=== PATIENT | male | born 1950 | race Caucasian/White ===

== ENCOUNTER 2018-02-23 14:39 | Inpatient (IN) | payer MEDICARE ==
[~2018-02-23] VITALS: Ht 190.5 cm; Wt 58.5 kg
--- NOTE | 2018-02-23 14:42 | NUR ---
PT TO ER BED 14 C/O WORSENING NAUSEA, GENERALIZED WEAKNESS FOR A COUPLE OF WEEKS NOW. WAS AT URGENT CARE YESTERDAY FOR SAME REASON. PT GOWNED AND PLACED ON MONITOR. AWAITING MD MCGILL.
--- NOTE | 2018-02-23 15:03 | NUR ---
DR LAST AT BEDSIDE FOR EVAL.
[2018-02-23] MEDS ORDERED: ONDANSETRON HCL/PF 4 MG/2 ML VIAL ONE (15:19)
[2018-02-23 15:27] LABS: BASOPHILS # (AUTO) 0.1 /CMM (0.0-0.2); BASOPHILS % (AUTO) 0.4 % (0.0-2.0); HEMATOCRIT 42 % (39-51); HEMOGLOBIN 13.3 g/dL (13.5-17.5); LYMPHOCYTES # (AUTO) 0.5 /CMM (0.8-4.8); LYMPHOCYTES % (AUTO) 1.6 % (20.0-44.0); MEAN CORPUSCULAR HEMOGLOBIN 26 PG (26.0-33.0); MEAN CORPUSCULAR HGB CONC 32 g/dl (31.0-36.0); MEAN CORPUSCULAR VOLUME 83 fL (80-96); MONOCYTES # (AUTO) 1.3 /CMM (0.1-1.30); MONOCYTES % (AUTO) 4.2 % (2.0-12.0); NEUTROPHILS # (AUTO) 29.2 /CMM (1.8-8.9); NEUTROPHILS % (AUTO) 93.8 % (43.0-81.0); PLATELET COUNT (AUTO) 550 /CMM (150-450); RDW COEFFICIENT OF VARIATION 14.8 (11.5-15.0)
--- NOTE | 2018-02-23 15:28 | NUR ---
PT STATES NAUSEATED. ERMD AWARE. ZOFRAN IVP GIVEN PER ERMD VERBAL ORDER.
[2018-02-23 15:30] LABS: WHITE BLOOD COUNT (AUTO) 31.2 K/uL (4.3-11.0)
[2018-02-23] MEDS ORDERED: IV NS 0.9% 1,000 ML BAG IV ONE ×2 (15:30→18:30)
[2018-02-23 15:34] LABS: CALCIUM, SERUM 9.2 mg/dL (8.5-10.1); CREATININE 1.3 mg/dL (0.6-1.3); POTASSIUM 4.2 mmol/L (3.5-5.1)
[2018-02-23 15:40] LABS: ALBUMIN 2.3 g/dL (3.4-5.0); BILIRUBIN,DIRECT 0.1 mg/dL (0.0-0.2); BILIRUBIN,TOTAL 0.3 mg/dL (0.2-1.0); TOTAL PROTEIN, SERUM 8.2 g/dL (6.4-8.2)
--- NOTE | 2018-02-23 15:43 | NUR ---
RADIOLOGY AT BEDSIDE FOR ABDOMINAL XRAY.
[2018-02-23 16:04] LABS: BAND % (MANUAL) 3 % (0.0-5.0); LYMPHOCYTES % (MANUAL) 2 % (16-48); MONOCYTES % (MANUAL) 2 % (0-11.0); NEUTROPHILS % (MANUAL) 93 (42-76)
[2018-02-23 17:11] LABS: APPEARANCE,URINE Cloudy (CLEAR); BILIRUBIN,URINE Negative (NEGATIVE); BLOOD, URINE Large Ery/uL (NEGATIVE); COLOR,URINE Amber (YELLOW); KETONES,URINE Trace (NEGATIVE); LEUKOCYTE ESTERASE ,URINE Large (NEGATIVE); NITRITE, URINE Negative (NEGATIVE); PH,URINE 6.5 (5.0-8.0); PROTEIN,URINE 100 mg/dl (NEGATIVE); UGLUCOSE Negative (NEGATIVE); UROBILINOGEN,URINE 0.2 EU/dL (0.2)
[2018-02-23 17:25] LABS: BACTERIA,URINE Few /HPF (None Seen); RBC,URINE TOO NUMEROUS TO COUN /HPF (0-2); SQUAMOUS EPITHELIAL CELL,UR Few /HPF (None Seen); WBC,URINE TOO NUMEROUS TO COUN /HPF (0-3)
[2018-02-23] MEDS ORDERED: TAMS-12 PO (18:25)
[2018-02-23] MEDS ORDERED: TEMA30CA PO (18:25)
[2018-02-23] MEDS ORDERED: COFF400C PO (18:26)
[2018-02-23] MEDS ORDERED: CEFTRIAXONE 1 G in IV D5W 50 ML IV ONE (18:30)
[2018-02-23] MEDS ORDERED: CEFTRIAXONE 1GM BAG (ER ONLY) 50 ML IV ONE (18:30)
--- NOTE | 2018-02-23 18:44 | NUR ---
REPORT GIVEN TO CRYSTAL EASTON. PT AWAITING TRASFER TO FLOOR.
--- NOTE | 2018-02-23 19:27 | NUR ---
ADMISSION NOTES: RECEIVED REPORT FROM JONATHON EASTON. PT WAS BROUGHT TO THE UNIT VIA [employer]AD[employer] CC OF DECREASED/POOR APPETITE AND WORSENING NAUSEA FOR COUPLE OF WEEKS. PT IS A/O X3, ON RA RESPIRATION EVEN AND UNLABORED. NOTED EPISODE OF COUGHING, PER PT IT HAS PHLEGM SOMETIMES BUT HE'S UNABLE TO CLEAR OUT OR COUGH OUT HIS SECRETIONS THAT'S WHY HE DOESN'T KNOW WHAT IS THE COLOR OF HIS PHLEGM. PT HAS RIGHT AC G 20 PATENT AND FLUSHING WELL, NO S./S OF INFILTRATION OR REDNESS NOTED. PT USES MOTORIZED SCOOTER, STATED HE'S UNABLE TO AMBULATE ON HIS FEET, EVEN LIFT HIS LEGS BUT HAS SENSATION ON LEGS. ORIENTED PT TO UNIT POLICY AND HOURLY ROUNDING, USE OF CALL LIGHT SYSTEM. SKIN ASSESSMENT PERFORMED AND TOOK PHOTOS OF SKIN ISSUES, PRINTED AND ATTACHED TO PT'S CHART. PT BROUGHT OWN MEDICATION FROM HOME, AND INFORMED PT ABOUT POLICY OF HOSPITAL ABOUT KEEPING HOME MEDS, PT AGREE TO SEND HIS MEDICATION TO THE PHARMACY. BLE OFFLOADED. SPORTS PSYCHOLOGIST QUALITY CONTROL ASSOCIATE CAME TO SEE THE PT AT 1930, PERFORMED H&P, DISCUSSED PLAN OF CARE TO THE PT, MADE AWARE OF PT'S HEART RATE. PER QUALITY CONTROL ASSOCIATE WILL INPUT ALL ADMITTING ORDERS. VS TAKEN AND RECORDED. SAFETY PRECAUTIONS FOR FALL INITIATED, CALL LIGHT IN REACH. WILL CONTINUE MONITORING PT.
[2018-02-23 19:30] VITALS: BP 122/67
[2018-02-23] MEDS ORDERED: ACETAMINOPHEN 325 MG TABLET PO PRN (19:30)
[2018-02-23] MEDS ORDERED: ZOLPIDEM TARTRATE 5 MG TABLET PO PRN (19:30)
[2018-02-23] MEDS ORDERED: MAGNESIUM HYDROXIDE 30 ML UDC PO PRN (19:30)
[2018-02-23] MEDS ORDERED: ONDANSETRON HCL/PF 4 MG/2 ML VIAL IVP PRN (19:30)
[2018-02-23] MEDS ORDERED: FEE PK DOSING 1 MIN EA MC ONE (19:49)
[2018-02-23 20:00] VITALS: BP 122/67
[2018-02-23] MEDS ORDERED: IPRATROPIUM NEB FS 0.5 MG/2.5 ML AMPUL.NEB NEB PRN (20:00)
[2018-02-23] MEDS ORDERED: VANCOMYCIN 1 GM VIAL ONE (20:38)
[2018-02-23] MEDS: IV NS 0.9% 1,000 ML IV PRN (20:46)
[2018-02-23] MEDS: VANCOMYCIN 1 GM in IV D5W 250 ML IV SCH (20:46)
--- NOTE | 2018-02-23 20:48 | NUR ---
rn notes regarding vancomycin: vancomycin 1gm new order from md, override the medication, contacted pharmacy, spoke with ty, informed that rn overlooked the medication, didnt know medication was delivered, already override the vancomycin 1gm and mixed it, informed ty/pharmacist.
[2018-02-23] MEDS: ENOXAPARIN SODIUM 40 MG/0.4 ML DISP.SYRIN SQ SCH (20:58)
[2018-02-23] MEDS: PIPERACILLIN /TAZOBACTAM 3.375 G in IV D5W 50 ML IV SCH (22:01)
[2018-02-24] MEDS: Z GUARD REMEDY 2 OZ OINT TP PRN (01:30)
[2018-02-24] MEDS: HYDROCODONE/APAP 5/325MG 1 EACH TABLET PO PRN (02:23)
[2018-02-24] MEDS: PIPERACILLIN /TAZOBACTAM 3.375 G in IV D5W 50 ML IV SCH ×4 (05:04→23:04)
--- NOTE | 2018-02-24 06:44 | NUR ---
RN CLOSING NOTES: PT IN BED, AWAKE, REMAINS ON RA, DENIES ANY SOB, IV ACCESS REMAINS PATENT AND FLUSHING WELL, FREE FROM REDNESS, NO INFILTRATION NOTED ON IV SITE. BLE OFFLOADED. RIGHT ELBOW OFFLOADED. VS REMAINS STABLE, NEEDS ATTENDED. FOR WOUND CARE CONSULT, DIETARY CONSULT, CM AND TAG STRINGER CONSULT. AWAITING DELIVERY OF [facility] MATTRESS. AWAITING MEDS TO BE RECONCILE. SAFETY PRECAUTIONS FOR FALL REMAINS ENGAGED, CALL LIGHT IN REACH, WILL ENDORSE TO DAY RN FOR CONTINUITY OF CARE.
[2018-02-24 07:21] LABS: HEMATOCRIT 34 % (39-51); HEMOGLOBIN 10.9 g/dL (13.5-17.5); LYMPHOCYTES # (AUTO) 0.4 /CMM (0.8-4.8); LYMPHOCYTES % (AUTO) 1.5 % (20.0-44.0); MEAN CORPUSCULAR HEMOGLOBIN 27 PG (26.0-33.0); MEAN CORPUSCULAR HGB CONC 32 g/dl (31.0-36.0); MEAN CORPUSCULAR VOLUME 84 fL (80-96); MONOCYTES # (AUTO) 1.5 /CMM (0.1-1.30); MONOCYTES % (AUTO) 5.4 % (2.0-12.0); NEUTROPHILS # (AUTO) 26.1 /CMM (1.8-8.9); NEUTROPHILS % (AUTO) 93.1 % (43.0-81.0); PLATELET COUNT (AUTO) 464 /CMM (150-450); RDW COEFFICIENT OF VARIATION 14.9 (11.5-15.0); RED BLOOD CELL COUNT(AUTO) 4.08 MIL/uL (4.5-6.0); WHITE BLOOD COUNT (AUTO) 28.1 K/uL (4.3-11.0)
--- NOTE | 2018-02-24 07:36 | NUR ---
RN OPENING NOTES RECEIVED PATIENT RESTING IN BED, A/OX3. NO ACUTE DISTRESS, NO SOB, DENIED PAIN OR DISCOMFORT AT THIS TIME. IV SITE INTACT AND PATENT. KEPT PATIENT SAFE AND COMFORTABLE. BED IN LOW/LOCKED POSITION, SIDERAILS UPX2, CALL LIGHT IN REACH. WILL CONTINUE TO MONITOR ACCORDINGLY
[2018-02-24 07:44] LABS: MAGNESIUM 1.8 mg/dL (1.8-2.4); PHOSPHORUS 2.9 mg/dL (2.5-4.9); POTASSIUM 3.2 mmol/L (3.5-5.1)
[2018-02-24 08:00] VITALS: BP 96/57
[2018-02-24] MEDS: VANCOMYCIN 1 GM in IV D5W 250 ML IV SCH (09:00)
[2018-02-24] MEDS ORDERED: POTASSIUM CHLORIDE 20 MEQ TAB.PRT.SR PO SCH (11:30)
[2018-02-24] MEDS: POTASSIUM CHLORIDE 20 MEQ TAB.PRT.SR PO SCH ×2 (11:48→12:37)
[2018-02-24] MEDS ORDERED: TEMAZEPAM 15 MG CAPSULE PO PRN (13:30)
[2018-02-24] MEDS ORDERED: ASPIRIN 325 MG TABLET PO PRN (14:00)
[2018-02-24 16:00] VITALS: BP 97/52
[2018-02-24] MEDS: LACTOBACILLUS RHAMNOSUS GG 1 EACH CAP.SPRINK PO SCH (16:42)
[2018-02-24] MEDS: IV NS 0.9% 1,000 ML IV PRN (17:18)
--- NOTE | 2018-02-24 18:00 | NUR ---
RN NOTES TURNED AND REPOSITIONED PATIENT EVERY 2 HRS NEEDED.
--- NOTE | 2018-02-24 18:43 | NUR ---
RN NOTES PATIENT ASKING FOR ASPIRIN ORDER FOR HEADACHE. JASON VÁZQUEZ ORDERED ASPIRIN 325MG PO Q6 PRN FOR HEADACHE. PATIENT ASKING FOR 2 325MG TOTAL OF 650MG. NOTIFIED JASON VÁZQUEZ NP. PER JASON VÁZQUEZ NP, OK TO ORDER ASPIRIN 650MG, READBACK AND VERIFIED.
--- NOTE | 2018-02-24 19:04 | NUR ---
Met with patient, he is alert, resides on the first floor apartment with a roommate. He does not ambulate, he has a power scooter that he utilized to mobilized. He is semi-independent with adl's. His primary source of support is his roommate who is disabled. Patient will take the bus on his scooter to go home when discharge. Addendum: 02/24/18 at 1906 by DANNIELLE STEPHENSON RN Amended: Links added.
--- NOTE | 2018-02-24 19:29 | NUR ---
PATIENT IN STABLE CONDITION. ALL NEEDS ATTENDED AND PROVIDED. ALL DUE MEDS GIVEN ORDERED. KEPT PATIENT SAFE AND COMFORTABLE. BED IN LOW/LOCKED POSITION, SIDERAILS UPX2, CALL LIGHT IN REACH. ENDORSED TO NIGHT RN FOR TERESA.
--- NOTE | 2018-02-24 19:30 | NUR ---
rn initial notes: PT IN BED, AWAKE, ON RA, DENIES ANY SOB, IV ACCESS REMAINS PATENT AND FLUSHING WELL, FREE FROM REDNESS, NO INFILTRATION NOTED ON IV SITE. BLE OFFLOADED. RIGHT ELBOW OFFLOADED. PT REQUESTING FOR TYLENOL FOR GENERALIZED PAIN, REFUSING NORCO. SAFETY PRECAUTIONS FOR FALL REMAINS ENGAGED, CALL LIGHT IN REACH, WILL ENDORSE TO DAY RN FOR CONTINUITY OF CARE.
--- NOTE | 2018-02-24 19:35 | NUR ---
RN NOTES: PT VOIDED IN THE DIAPER, DIAPER NOTED TO BE SOAKED WITH URINE, PERFORMED BLADDER SCAN POST VOID OBTAINED 0ML. NO ABDOMINAL DISTENTION NOTED, PT DENIES ANY PAIN UPON PALPATIN OF BLADDER/ABDOMINAL AREA.
--- NOTE | 2018-02-24 19:40 | NUR ---
prn tylenol: pt stated he has generalized pain, offered norco, but pt refused stated he preferred tylenol, prn tylenol 650 mg tab po administered at this time. will cotnineu to monitor and reassess pt
[2018-02-24 20:00] VITALS: BP 95/60
[2018-02-24] MEDS: TAMSULOSIN 0.4 MG CAP.SR.24H PO SCH (21:06)
[2018-02-24] MEDS: ENOXAPARIN SODIUM 40 MG/0.4 ML DISP.SYRIN SQ SCH (21:07)
--- NOTE | 2018-02-24 21:35 | NUR ---
BLADDER SCAN: PERFORMED BLADDER SCAN, OBTAINED RESULT OF 197 ML, HIGHEST AMOUNT OBTAINED, UNABLE TO PRINT RESULT IT APPEARS ITS OUT OF PAPER. NO ABDOMINAL DISTENTION NOTED, PT DENIES ANY PAIN UPON PALPATION OF ABDOMEN AND BLADDER AREA.
[2018-02-24] MEDS ORDERED: PIPERACILLIN /TAZOBACTAM 3.375 G in IV D5W 50 ML IV SCH (22:00)
[2018-02-24] MEDS: ASPIRIN 325 MG TABLET PO PRN (22:02)
--- NOTE | 2018-02-24 22:02 | NUR ---
PRN ASPIRIN: PT REQUESTED FOR HIS ASPIRIN FOR C/O GENERALIZED PAIN 12/12, HE REFUSED NORCO AND SPECIFICALLY WANTS ASPIRIN STATED HE'S BEEN USED TO THIS MEDICATION, HE NORMALLY TAKES IT FOR PAIN, WHEN HIS AT HOME. PRN ASPIRIN 650 MG TAB PO ADMINISTERED AT THIS TIME. WILL CONTINUE TO MONITOR AND REASSESS
--- NOTE | 2018-02-25 | NUR ---
RN NOTES: PT VOIDED IN THE DIAPER, POST VOID RESIDUAL OBTAINED IS 50ML, NO ABDOMINAL DISTENTION NOTED, WILL CONTINUE MONITORING PT
--- NOTE | 2018-02-25 04:15 | NUR ---
BLADDER SCAN: BLADDER SCAN PERFORMED AT THIS TIME, OBTAINED RESULT OF 150ML, UNABLE TO PRINT REPORT THERE'S NO PRINTER PAPER AVAILABLE IN THE BLADDER SCANNER MACHINE
[2018-02-25] MEDS: ASPIRIN 325 MG TABLET PO PRN ×2 (04:32→22:31)
--- NOTE | 2018-02-25 04:33 | NUR ---
PRN ASPIRIN 650MG: PT C/O GENERALIZED PAIN REQUESTING FOR ASPIRIN, PRN ASPIRIN 650 MG TAB PO ADMINISTERED TO THE PT AT THIS TIME. PT STATED HE WANTS THE ASPIRIN TO BE GIVEN SCHEDULED EVERY 6HRS, INFORMED PT THAT ASPIRIN ORDER IS EVERY 6HRS NEEDED FOR PAIN, TECHNICALLY ITS AN SCHEDULED, SO HE STILL NEEDS TO CALL IF HE WANTS THE MEDICATION. IF BY THE TIME HE CALLS AND MEDICINE NOT DUE YET, AT LEAST RN AWARE THAT HE WANTS THE MEDICATION. INFORMED PT ABOUT RISK FOR GI BLEEDING THERE'S NECESSARY PRECAUTION TO WHY ASPIRIN IS BEING GIVEN IN THE FREQUENCY ORDERED, HOWEVER PT CLAIMED HE'S BODY IS USED TO TAKING ASPIRIN 650MG TAB EVERY DAY Q3HRS FOR PAIN.
[2018-02-25] MEDS: PIPERACILLIN /TAZOBACTAM 3.375 G in IV D5W 50 ML IV SCH ×4 (05:03→23:05)
[2018-02-25] MEDS: IV NS 0.9% 1,000 ML IV PRN ×2 (05:03→21:49)
--- NOTE | 2018-02-25 05:30 | NUR ---
rn notes: surgery aid changed pt's diaper q2hrs and diaper is soaking wet, surgery aid did complete linen changed for those time she change pt's diaper. every after voiding, bladder scan was performed accordingly. z guard lathered on pt's sacral and perineum area, and mepilex applied also and to other bony prominence. pt help in repositioning, surgery aid and rn assisting pt in turning and repositioning every 2hrs. unfortunately, no available bed with belen mattress at this time, but standing order for kci was placed, will follow up with day rn in am. pt needs motivation and encouragement in repositioning, there are times pt will refused, but afterwards will changed his mind and will agree to be turn and reposition. pt able to turn/reposition on his own, but he doesnt want to be on his side and preferred to be laying on his back which is dangerous as he's too fragile and prone to developing and worsening of pressure ulcer. education provided to pt.
--- NOTE | 2018-02-25 06:59 | NUR ---
RN CLOSING NOTES: PT IN BED, AWAKE, REMAINS ON RA, DENIES ANY SOB, IV ACCESS REMAINS PATENT AND FLUSHING WELL, FREE FROM REDNESS, NO INFILTRATION NOTED ON IV SITE. BLE OFFLOADED. VS REMAINS STABLE, NEEDS ATTENDED. FOR WOUND CARE CONSULT, AWAITING DELIVERY OF [facility] MATTRESS.BLADDER SCAN PERFORMED OBTAINED RESULT OF 150ML. PT VOIDING FREELY USING DIAPER. FOR US BLADDER TODAY. SAFETY PRECAUTIONS FOR FALL REMAINS ENGAGED, CALL LIGHT IN REACH, WILL ENDORSE TO DAY RN FOR CONTINUITY OF CARE.
[2018-02-25 07:35] LABS: EOSINOPHILS % (AUTO) 0.3 % (0.0-6.0); HEMATOCRIT 31 % (39-51); HEMOGLOBIN 9.9 g/dL (13.5-17.5); LYMPHOCYTES # (AUTO) 0.5 /CMM (0.8-4.8); LYMPHOCYTES % (AUTO) 2.3 % (20.0-44.0); MEAN CORPUSCULAR HEMOGLOBIN 27 PG (26.0-33.0); MEAN CORPUSCULAR HGB CONC 32 g/dl (31.0-36.0); MEAN CORPUSCULAR VOLUME 84 fL (80-96); MONOCYTES % (AUTO) 5.4 % (2.0-12.0); NEUTROPHILS # (AUTO) 17.8 /CMM (1.8-8.9); PLATELET COUNT (AUTO) 439 /CMM (150-450); RDW COEFFICIENT OF VARIATION 15.4 (11.5-15.0); RED BLOOD CELL COUNT(AUTO) 3.73 MIL/uL (4.5-6.0); WHITE BLOOD COUNT (AUTO) 19.3 K/uL (4.3-11.0)
[2018-02-25 07:44] LABS: CREATININE 0.8 mg/dL (0.6-1.3); MAGNESIUM 1.8 mg/dL (1.8-2.4); PHOSPHORUS 2.4 mg/dL (2.5-4.9); POTASSIUM 3.2 mmol/L (3.5-5.1)
[2018-02-25 08:00] VITALS: BP 99/65
[2018-02-25] MEDS: LACTOBACILLUS RHAMNOSUS GG 1 EACH CAP.SPRINK PO SCH ×2 (08:42→16:48)
--- NOTE | 2018-02-25 08:46 | NUR ---
MS RN Initial notes Patient is up sitting in the bed, breathing on room air, no shortness of breath, non productive cough, denies pain. Due meds given, IVF infusing. Maintained safety. Will cont to monitor.
[2018-02-25] MEDS ORDERED: K PHOS NEUTRAL 250 MG TABLET PO ONE (11:30)
[2018-02-25] MEDS: POTASSIUM CHLORIDE 20 MEQ TAB.PRT.SR PO SCH ×2 (12:06→13:10)
[2018-02-25] MEDS: HYDROCODONE/APAP 5/325MG 1 EACH TABLET PO PRN ×2 (12:13→16:55)
[2018-02-25] MEDS: ENSURE ENLIVE CHOC 237 ML CAN PO SCH ×2 (13:16→16:48)
[2018-02-25] MEDS: Z GUARD REMEDY 2 OZ OINT TP PRN ×2 (13:21→22:37)
[2018-02-25] MEDS ORDERED: POTASSIUM CHLORIDE 20 MEQ TAB.PRT.SR PO SCH (13:30)
[2018-02-25 16:00] VITALS: BP 108/65
--- NOTE | 2018-02-25 18:36 | NUR ---
MS RN closing notes Patient is A/O x4, with mood changes and irritable at times. Back pain and headache managed by PO PRN Proctor with relief. Poor appetite, Ensure drink TID recommended by Dietitian. Low Potassium and phosphorus level today, supplemented as ordered. Continued on IV Zosyn per ID, afebrile during the shift. Patient voided, denies bladder pain. Bladder scan PRN, post void residual 328vol urine, straight cath. at 1115am and obtained 395cc cloudy yellow urine. Post void residual 305vol. urine, straight cath again at 1430, obtained 310cc urine cloudy, yellow. Seen by Ismail/ID today, will insert urinary english cath as ordered, patient is aware. Will endorse to oncoming RN.
--- NOTE | 2018-02-25 19:00 | NUR ---
rn initial notes: RECEIVED REPORT FROM KAYLAH EASTON. PT IN BED, AWAKE, ON RA, DENIES ANY SOB, IV ACCESS REMAINS PATENT AND FLUSHING WELL, FREE FROM REDNESS, NO INFILTRATION NOTED ON IV SITE. IV INFUSING WITH NS AT 75ML/HR. PT HAS ORDER TO INSERT BELL CATHETER, RUSTAM ADRIAN TRIED BUT MEETING RESISTANCE. WILL TRY TO DO IT AGAIN LATER. SAFETY PRECAUTIONS FOR FALL REMAINS ENGAGED, CALL LIGHT IN REACH, WILL CONTINUE MONITORING PT.
--- NOTE | 2018-02-25 19:06 | NUR ---
Inserting urinary english cath as ordered, resistance noted, attempted x1. Will endorse to oncoming RN.
--- NOTE | 2018-02-25 19:15 | NUR ---
rn notes: debbie carrasquillo came back to the unit, informed about resistance in inserting english catheter, inform pt has history of bladder spasm and been taking flomax, possible has enlarge prostate, per foreign, do urology consult in am
--- NOTE | 2018-02-25 19:30 | NUR ---
rn notes: placed in between pt's leg to catch urine, as pt unable to hold urinal on his own and doesnt feel the urge to pee, pt stated he's mostly incontinent but claimed that he still void, its just that he's not aware when he's going to pee.
[2018-02-25 20:00] VITALS: BP 100/58
--- NOTE | 2018-02-25 20:00 | NUR ---
RUSTAM SEPULVEDA REGARDING SACRAL UNSTAGEABLE ULCER: NOTED NON BLANCHABLE REDNESS, PURPLISH COLOR, PINKISH, ON PT'S SACRAL AREA,WITH NOTED PALE TO PINKISH COLOR OF MIDDLE SACRUM,APPEARS SORE, WASHED WITH WATER PAT DRY, ZGUARD AND MEPILEX APPLIED, ALSO SINCE PT IS VERY SKINNY/BONY YOU CAN EVEN FEEL THE TAIL BONE, DECIDED TO APPLY MEPILEX ON THE AREA. TURNED AND REPOSITIONED PT Q2 AND NEEDED,PT ABLE TO TURN ON HIS OWN BUT MOST OF THE TIME HE DOESNT WANT TO TURN ON HIS OWN, THAT'S WHY RN AND WATER SAFETY INSTRUCTOR DOING THE REPOSITIONING FOR THE PT. NOTED A TINY OPENING ON PT'S SACRAL AREA 0.3CM X0.5CM, AREA PROTECTED WITH Z GUARD AND MEPILEX. BLE OFFLOADED, WILL F/U REGARDING ORDER OF [facility] AND WOUND CARE CONSULT IN AM
--- NOTE | 2018-02-25 20:15 | NUR ---
RN NOTES: TRIED INSERTING BELL CATHETER BUT UNSUCCESSFUL, DUE TO MEETING RESISTANCE, PT UNABLE TO TOLERATE PROCEDURE STATED IT WAS SO PAINFUL, UPON REMOVING THE CATHETER, NOTED BLOOD ON THE TIP OF THE CATHETER. PT VOIDED USING URINAL OBTAINED 400ML OF URINE. POST VOID BLADDER SCAN OBTAINED RESULT OF 100ML.
--- NOTE | 2018-02-25 21:30 | NUR ---
RN NOTES: PT REFUSED FOR CATHETERIZATION, STATED HE DOESNT WANT TO BE "LOCKED WITH BELL CATHETER", AND HE WANTS TO VOID FREELY USING URINAL, HE SAID HE'S BEEN GOOD IN USING URINAL". INFORMED PT THAT THE CATHETER IS MAINLY TO EMPTY HIS BLADDER HIS BEEN RETAINING URINE, PER PT, HE DOESNT WANT CATHETER
[2018-02-25] MEDS: TAMSULOSIN 0.4 MG CAP.SR.24H PO SCH (21:48)
--- NOTE | 2018-02-25 22:00 | NUR ---
RN NOTES: PT REFUSED TO BE REPOSITION AT THIS TIME, STATED HE CAN TURN ON HIS OWN, EDUCATE PT REGARDING RISK AND BENEFITS OF FREQUENT REPOSITIONING ESPECIALLY IN HIS CASE THAT HE'S VERY FRAGILE AND HAS LOST A LOT OF WEIGHT AND THAT HIS BODY SKIN VERY PRONE TO DEVELOPING FURTHER SKIN ISSUES/ULCER. PT REFUSED TO BE REPOSITION AT THIS TIME.
[2018-02-25] MEDS: ENOXAPARIN SODIUM 40 MG/0.4 ML DISP.SYRIN SQ SCH (22:32)
--- NOTE | 2018-02-25 22:35 | NUR ---
prn aspirin: pt c/o [id number] pain he said he wants his aspirin, prn aspirin 650 mg tab po administered at this time.
--- NOTE | 2018-02-25 22:35 | NUR ---
RN NOTES: PT VOIDED USING URINAL OBTAINED 200ML OF CLOUDY NITHYA COLORED URINE, BLADDER SCAN PERFORMED, POST VOID RESIDUAL AMOUNT IN THE BLADDER IS 150ML.PT DENIES ANY ABDOMINAL DISTENTION, OR PAIN IN THE ABDOMEN/BLADDER AREA.
--- NOTE | 2018-02-26 00:07 | NUR ---
REFUSED TO BE TURN AND REPOSITION: ENCOURAGE PT ABOUT REPOSITIONING, PT REFUSED, EDUCATION PROVIDED TO PT, ASKED PT TO WHAT IS THE REASON FOR HIS REFUSAL, PT STATED HE CAN TURN ON HIS OWN, INFORMED PT TO TURN REPOSITION HIMSELF EVERY 2HRS AND IF HE CAN DO SO NOW, BUT PT REFUSED, STATED HE'S COMFORTABLE IN HIS POSITION.
--- NOTE | 2018-02-26 02:01 | NUR ---
REFUSAL FOR TURNING AND REPOSITIONING: PT REFUSED AGAIN TO BE TURN AND REPOSITION, EDUCATE PT AGAIN BUT STILL REFUSED, WILL OFFER AGAIN LATER
--- NOTE | 2018-02-26 03:28 | NUR ---
RN NOTES: PT REMOVED MEPILEX ON HIS SACRAL AREA, STATED IT DOESNT FEEL GOOD HAVING SOMETHING STICK ON HIS BOTTOM, INFORMED PT THAT MEPILEX IS MAINLY A SOFT CUSHION FOR PROTECTION. OFFERED TO BE TURN AND REPOSITION BUT PT REFUSED AGAIN
--- NOTE | 2018-02-26 03:44 | NUR ---
RUSTAM NOTES: CONFISCATED PT'S CIGARRETTE, PLACED ON BAG WITH PT'S LEATHER BELT LOOP CUTTER IT Addendum: 02/26/18 at 0425 by KESHAWN CROW RN disregard above documentation: wrong pt
--- NOTE | 2018-02-26 04:00 | NUR ---
refused reposition and turn: offered to be reposition at this time, but pt refused again, stated he just turned by himself not too long ago, but pt seems to be in the same position, found out that the newly paced mepilex was again removed by pt,and he put this in the table, re-educate pt again
[2018-02-26] MEDS: ASPIRIN 325 MG TABLET PO PRN (05:02)
[2018-02-26] MEDS: PIPERACILLIN /TAZOBACTAM 3.375 G in IV D5W 50 ML IV SCH ×2 (05:02→12:49)
--- NOTE | 2018-02-26 05:03 | NUR ---
PRN ASPIRIN: PT C/O GENERALIZED PAIN REQUESTING FOR ASPIRIN, PRN ASPIRIN 650 MG TAB PO ADMINISTERED AT THIS TIME, WILL CONTINUE TO MONITOR AND REASSESS
--- NOTE | 2018-02-26 06:00 | NUR ---
refusal for turning and reposition: offered to be reposition, but pt for the nth time refused stated that he doesn't want to turn, because he has lumbar problem and its difficult and causing so much discomfort if he stay on his side, he also claimed that he's more comfortable laying on his back. education provided to the pt, made aware that if he doesn't move and turn/reposition there is a possibility of the tiny wound to progress and become bigger until the muscle and bone expose and cause pain and in the end will needs debridement. However, pt been very passive and sarcastic, and remains to refused reposition. also another point is pt kept removing the mepilex we put on sacral area and other sukhdev prominence.
--- NOTE | 2018-02-26 06:58 | NUR ---
rn closing notes: pt in bed, awake, remains on ra, pt remains to refused having Larkin catheter, stated just to keep the urinal in between his leg is more dignified and comfortable so he can just urinate on his own. also, pt remains to refused for turning and repositioning, and kept removing all Mepilex placed on his sacral area and other bony prominence, also he refused wearing hospital gown. due to pt's refusal, a more straight forward education provided to pt about his tiny open wound that could be turn into a huge hole with bone exposure and muscle exposure until his sacral area became open and its going to be too painful to be sitting/laying on his buttocks, and worst it will need a debridement just to repair it. No matter what kind of education provided to pt, pt remains to refused turning and repositioning. ble kept offloaded. left a message to central supply to follow up regarding order for kci. will inform day rn to kindly follow up too. other than the above mentioned issues, pt vs remains stable, iv access remains patent and flushing well, infusing with ns at 75ml/hr, site free from redness or infiltration. awaiting urologist and wound care consult. continue with iv atb, pain controlled using po aspirin per pt preference. safety precautions for fall initiated, call light in reach, will endorse to day rn for continuity of care.
[2018-02-26 07:18] LABS: CALCIUM, SERUM 7.8 mg/dL (8.5-10.1); CREATININE 0.7 mg/dL (0.6-1.3); MAGNESIUM 1.7 mg/dL (1.8-2.4); PHOSPHORUS 2.7 mg/dL (2.5-4.9); POTASSIUM 3.3 mmol/L (3.5-5.1)
[2018-02-26 07:35] LABS: HEMATOCRIT 32 % (39-51); HEMOGLOBIN 9.6 g/dL (13.5-17.5); LYMPHOCYTES # (AUTO) 0.5 /CMM (0.8-4.8); LYMPHOCYTES % (AUTO) 3.2 % (20.0-44.0); MEAN CORPUSCULAR HEMOGLOBIN 25 PG (26.0-33.0); MEAN CORPUSCULAR HGB CONC 30 g/dl (31.0-36.0); MEAN CORPUSCULAR VOLUME 84 fL (80-96); MONOCYTES # (AUTO) 0.8 /CMM (0.1-1.30); MONOCYTES % (AUTO) 4.9 % (2.0-12.0); NEUTROPHILS # (AUTO) 14.1 /CMM (1.8-8.9); NEUTROPHILS % (AUTO) 90.9 % (43.0-81.0); PLATELET COUNT (AUTO) 494 /CMM (150-450); RED BLOOD CELL COUNT(AUTO) 3.77 MIL/uL (4.5-6.0); WHITE BLOOD COUNT (AUTO) 15.5 K/uL (4.3-11.0)
--- NOTE | 2018-02-26 07:42 | NUR ---
MS RN Initial notes Patient is awake, A/O x4, sitting up in bed, watching TV. Patient is not wearing hosp.gown and prefers light bed linen sheet to cover his body. As per report patient is refusing to be turned and repositioned in bed, aware of the importance of frequent weight shift and offloading sacral and body areas. Despite of continuous teaching and education, patient still non compliant with the care. Awaits urology consult for urinary english cath.insertion. Will cont to monitor.
[2018-02-26 08:00] VITALS: BP 97/59
[2018-02-26] MEDS: ENSURE ENLIVE CHOC 237 ML CAN PO SCH ×2 (08:26→12:10)
[2018-02-26] MEDS: LACTOBACILLUS RHAMNOSUS GG 1 EACH CAP.SPRINK PO SCH (08:26)
--- NOTE | 2018-02-26 08:58 | NUR ---
WOUND CARE CONSULT: PT PRESENTS WITH SACRAL DEEP TISSUE INJURY (INTACT) PRESENT ON ADMISSION. PT ALSO NOTED TO HAVE DRY ABRASIONS TO EXTREMITIES AND SCARRING TO LEFT SHOULDER, PRESENT ON ADMISSION. LOW AIRLOSS MATTRESS ON ORDER. PER NURSING STAFF, PT HAS BEEN UNCOOPERATIVE AT TIMES AND HAS REMOVED SACRAL MEPILEX DRESSING. DISCUSSED IMPORTANCE OF OFFLOADING AND PROTECTING SACRAL DTI WITH NURSING STAFF AND PT. PT VERBALIZES UNDERSTANDING BUT STATES " I WANT TO GO HOME". ALL SKIN PROTECTION AND WOUND CARE RECOMMENDATIONS DISCUSSED WITH NURSING STAFF. WILL SEE PRN. ZAZUETA IN AGREEMENT WITH PLAN OF CARE. Addendum: 02/26/18 at 0902 by FRIEDA PORTER WNDNU Amended: Links added.
--- NOTE | 2018-02-26 09:00 | NUR ---
Patient voided in the urinal yellow and cloudy 400ml, pads soak upon providing care. Patient refusing to be turned and repositioned, prefers to stay on lying on his back all the time despite of education and teaching regarding skin breakdown. Patient voicing wants to go home and not stay in the hosp today. Will informed .
[2018-02-26] MEDS: Magnesium 1GM/D5W 100ML PREMIX 100 ML IV SCH ×2 (10:18→11:30)
[2018-02-26] MEDS ORDERED: POTASSIUM CHLORIDE 20 MEQ TAB.PRT.SR PO SCH (12:00)
--- NOTE | 2018-02-26 13:30 | NUR ---
MS hand slitter/AMA Patient refusing care, upon rounding in his room, all mepilex foam were patch at the bedside table, per patient " I dont need those nonsense". Patient declined education and teaching, screaming out loud to leave hospital. Explained the risk involved leaving the hosp and benefits of continued treatment and hospitalization, patient still strongly wants to leave and not to stay. Patient was very agitated, throwing things to the wall and yelling out profanities. Hosp security called and arrived 2x. Patient wants to sign AMA, patient is aware of AMA form and the risk involved. Patient still signed form. Hosp house fellow informed, JANINA Jules notified.
[2018-02-26] MEDS ORDERED: TAMSULOSIN 0.4 MG CAP.SR.24H PO SCH (22:00)
== END 2018-02-26 14:00 | disposition left against medical advice (07) | DRG 871 ==
LOC: ER 14:46 → MEDSG2 18:44
PROVIDERS: ADMIT Nurse Practitioner Acute Care; ATTEND Nurse Practitioner Acute Care
DX: A41.9 Sepsis, unspecified organism (principal); J15.6 Pneumonia due to other Gram-negative bacteria; E44.0 Moderate protein-calorie malnutrition; N39.0 Urinary tract infection, site not specified; J44.0 Chronic obstructive pulmonary disease with (acute) lower respiratory infection; D68.59 Other primary thrombophilia; Z68.1 Body mass index [BMI] 19.9 or less, adult; J44.9 Chronic obstructive pulmonary disease, unspecified; G35 Multiple sclerosis; Z99.3 Dependence on wheelchair; E87.6 Hypokalemia; N20.0 Calculus of kidney; F31.9 Bipolar disorder, unspecified; F60.9 Personality disorder, unspecified; K59.09 Other constipation; N32.89 Other specified disorders of bladder
CPT/HCPCS: 36415; 71045-TC; 74018; 76856-TC; 80048-TC; 80061-TC; 80076-TC; 80202-TC; 81000-TC; 83605-TC; 83690-TC; 83735-TC; 84100-TC; 85025-TC; 87040-TC; 87081-TC; 87086-TC; A4606; J0696; J1650; J2405; J2543; J3370; J3475; J7030; J7060; Z7610

== ENCOUNTER 2018-03-04 19:52 | Inpatient (IN) | payer MEDICARE ==
[~2018-03-04] VITALS: Ht 190.5 cm; Wt 32.7 kg
[~2018-03-04 19:52] MED LIST: COFF400C PO; TAMS-12 PO; TEMA30CA PO
--- NOTE | 2018-03-04 20:22 | NUR ---
BBRA FROM HOME C/C PER EMS, "WEAKNESS AND FAILURE TO THRIVE". PT STATES "I HAVE BEEN HAVING DIFFICULTY EATING AND SWALLOWING". PT NOTED TO BE MALNOURISHED AND UNDERWEIGHT. PT IS AAOX4. PT UNABLE TO RAISE LOWER EXTREMITIES STATING "I HAVE MS AND FEEL WEEK". SKIN COOL TO TOUCH. WARM BLANKETS PROVIDED TO PT. PT PRESENTS TO ER WITH 20G R AC IV PRESENT. NO S/S OF ACUTE DISTRESS NOTED. RR EVEN AND UNLABORED. PT PLACED ON RN CASE MANAGER AND POX. PT SAFETY AND COMFORT MEASURES IN PLACE. PT DENIES SIHI. BEDSIDE FOR EVAL. WILL CONTINUE TO MONITOR PT.
[2018-03-04 20:30] LABS: BASOPHILS # (AUTO) 0.2 /CMM (0.0-0.2); BASOPHILS % (AUTO) 0.4 % (0.0-2.0); EOSINOPHILS % (AUTO) 0.1 % (0.0-6.0); HEMATOCRIT 38 % (39-51); HEMOGLOBIN 12.6 g/dL (13.5-17.5); LYMPHOCYTES # (AUTO) 0.4 /CMM (0.8-4.8); LYMPHOCYTES % (AUTO) 0.8 % (20.0-44.0); MEAN CORPUSCULAR HGB CONC 33 g/dl (31.0-36.0); MEAN CORPUSCULAR VOLUME 80 fL (80-96); MONOCYTES # (AUTO) 0.6 /CMM (0.1-1.30); MONOCYTES % (AUTO) 1.3 % (2.0-12.0); NEUTROPHILS # (AUTO) 44.6 /CMM (1.8-8.9); NEUTROPHILS % (AUTO) 97.4 % (43.0-81.0); PLATELET COUNT (AUTO) 782 /CMM (150-450); RDW COEFFICIENT OF VARIATION 14.6 (11.5-15.0); RED BLOOD CELL COUNT(AUTO) 4.74 MIL/uL (4.5-6.0)
[2018-03-04] MEDS ORDERED: IV NS 0.9% 1,000 ML BAG IV ONE ×2 (20:30→22:00)
[2018-03-04 20:33] LABS: WHITE BLOOD COUNT (AUTO) 45.8 K/uL (4.3-11.0)
[2018-03-04] MEDS ORDERED: LIDOCAINE 2% JEL UROJET 10 ML MM ONE ×2 (20:39→21:00)
[2018-03-04 20:41] LABS: CALCIUM, SERUM 8.7 mg/dL (8.5-10.1); CARBON DIOXIDE 23 mmol/L (21-32); CHLORIDE 98 mmol/L (98-107); CREATININE 1.6 mg/dL (0.6-1.3); GLUCOSE 107 mg/dL (74-106); POTASSIUM 4.5 mmol/L (3.5-5.1); SODIUM SERUM 133 mmol/L (136-145); UREA NITROGEN, BLOOD 71 mg/dL (7-18)
[2018-03-04 20:45] LABS: INR 3.31 (0.85-1.15)
[2018-03-04 20:46] LABS: ALANINE AMINOTRANSFERASE 14 U/L (12-78); ALBUMIN 1.9 g/dL (3.4-5.0); ALKALINE PHOSPHATASE 117 U/L (46-116); ASPARTATE AMINOTRANSFERASE 12 U/L (15-37); BILIRUBIN,DIRECT 0.1 mg/dL (0.0-0.2); BILIRUBIN,TOTAL 0.3 mg/dL (0.2-1.0); TOTAL PROTEIN, SERUM 7.7 g/dL (6.4-8.2)
[2018-03-04 20:49] LABS: TROPONIN I < 0.017 ng/mL (0.00-0.056)
[2018-03-04 21:04] LABS: APPEARANCE,URINE Turbid (CLEAR); BLOOD, URINE Large Ery/uL (NEGATIVE); COLOR,URINE Red (YELLOW); KETONES,URINE 15 (NEGATIVE); LEUKOCYTE ESTERASE ,URINE Large (NEGATIVE); NITRITE, URINE Negative (NEGATIVE); PH,URINE 5.5 (5.0-8.0); PROTEIN,URINE >=300 mg/dl (NEGATIVE); UGLUCOSE Negative (NEGATIVE)
[2018-03-04 21:06] LABS: BILIRUBIN,URINE NEGATIVE (NEGATIVE); UROBILINOGEN,URINE 0.2 EU/dL (0.2)
--- NOTE | 2018-03-04 21:10 | NUR ---
URINE SAMPLE COLLECTED AND CALLED LAB FOR MAILING MACHINE ASSISTANT
[2018-03-04 21:11] LABS: BACTERIA,URINE Few /HPF (None Seen); RBC,URINE TOO NUMEROUS TO COUN /HPF (0-2); WBC,URINE TOO NUMEROUS TO COUN /HPF (0-3)
[2018-03-04 21:12] LABS: SQUAMOUS EPITHELIAL CELL,UR Rare /HPF (None Seen)
--- NOTE | 2018-03-04 21:25 | NUR ---
DR BLANCA SPEAKING WITH Jacki HALLMAN, ACCEPTING PATIENT.
[2018-03-04 21:41] LABS: BAND % (MANUAL) 3 % (0.0-5.0); LYMPHOCYTES % (MANUAL) 4 % (16-48); MONOCYTES % (MANUAL) 2 % (0-11.0); NEUTROPHILS % (MANUAL) 91 (42-76)
--- NOTE | 2018-03-04 21:46 | NUR ---
CALLED NURSING SUP REQUESTED TELE BED FOR THIS PATIENT.
[2018-03-04] MEDS ORDERED: IV NS 0.9% 1,000 ML IV PRN (21:53)
[2018-03-04] MEDS ORDERED: MAG HYDROX/AL HYDROX/SIMETH 30 ML UDC PO PRN (22:00)
[2018-03-04] MEDS ORDERED: Z GUARD REMEDY 2 OZ OINT TP PRN (22:00)
[2018-03-04] MEDS ORDERED: MAGNESIUM HYDROXIDE 30 ML UDC PO PRN (22:00)
[2018-03-04] MEDS ORDERED: ENOXAPARIN SODIUM 30 MG/0.3 ML DISP.SYRIN SQ SCH (22:00)
[2018-03-04] MEDS ORDERED: ACETAMINOPHEN 325 MG TABLET PO PRN (22:00)
[2018-03-04] MEDS ORDERED: ONDANSETRON HCL/PF 4 MG/2 ML VIAL IVP PRN (22:00)
[2018-03-04] MEDS ORDERED: CEFEPIME 1 GM in IV D5W 50 ML IV ONE (22:00)
[2018-03-04] MEDS ORDERED: ZOLPIDEM TARTRATE 5 MG TABLET PO PRN (22:00)
[2018-03-04] MEDS ORDERED: VANCOMYCIN 1 GM in IV D5W 250 ML IV ONE (22:00)
--- NOTE | 2018-03-04 22:17 | NUR ---
PT ADMIT TO ROOM 322-2
[2018-03-04] MEDS ORDERED: CEFEPIME 1 GM VIAL ONE (22:58)
[2018-03-04] MEDS ORDERED: VANCOMYCIN 1 GM VIAL ONE (23:04)
[2018-03-04 23:35] VITALS: BP 94/65
--- NOTE | 2018-03-04 23:35 | NUR ---
RN ADMITTING NOTES PT CAME VIA YSABEL, PT AWAKE AND ALERT X 4. PT WAS IN ROOM AIR, TOLERATING WELL, NO SIGNS OF DISTRESS, NO SOB, NO LABORED BREATHING. CARDIAC MONITORING SHOWS SINUS RHYTHM AT 96BPM. EDEMA ON THE LEG PRESENT, RIGHT FOOT 4+ PITTING, RIGHT LEG 2+ PITTING, LEFT LEG 1+ PITTING, LEFT FOOT 3+ PITTING. WOUNDS ARE PRESENT IN BUE, SACRAL, RIGHT EAR, GROIN REDNESS PICTURES WILL BE TAKEN AND PLACED IN THE CHART. PT DENIES ANY PAIN AT THIS TIME. OFFERED FOOD BUT DECLINE, JUST ICE COLD WATER. PT IS INCONTINENT, PT STATES THAT "SOMETIMES I CAN CONTROL/FEEL MYSELF GOING PEE, BUT MOST OF THE TIMES NOT." URINE IS CLEAR, PINK COLOR. SAFETY MEASURES IN PLACED, CALL LIGHT WITHIN REACH. WILL CONTINUE TO ASSESS AND MONITOR THE PATIENT FOR ANY CHANGES.
[2018-03-05] MEDS ORDERED: MEROPENEM 500 MG VIAL IV ONE (01:16)
[2018-03-05] MEDS: MEROPENEM 500 MG in IV NS 0.9% 50 ML IV SCH ×4 (01:19→21:41)
--- NOTE | 2018-03-05 01:21 | NUR ---
RN NOTES/ LOVENOX PT REFUSED LOVENOX, HE STATES "I DON'T NEED IT". EDUCATION WAS PROVIDED ON WHAT THE MEDICATION DOES AND ITS IMPORTANCE
[2018-03-05 04:00] VITALS: BP 91/61
[2018-03-05 06:36] LABS: HEMATOCRIT 32 % (39-51); HEMOGLOBIN 10.1 g/dL (13.5-17.5); LYMPHOCYTES # (AUTO) 0.3 /CMM (0.8-4.8); LYMPHOCYTES % (AUTO) 0.8 % (20.0-44.0); MEAN CORPUSCULAR HGB CONC 32 g/dl (31.0-36.0); MEAN CORPUSCULAR VOLUME 83 fL (80-96); MONOCYTES % (AUTO) 2.8 % (2.0-12.0); NEUTROPHILS # (AUTO) 35.2 /CMM (1.8-8.9); NEUTROPHILS % (AUTO) 96.4 % (43.0-81.0); PLATELET COUNT (AUTO) 648 /CMM (150-450); RDW COEFFICIENT OF VARIATION 15.7 (11.5-15.0); RED BLOOD CELL COUNT(AUTO) 3.81 MIL/uL (4.5-6.0)
[2018-03-05 06:49] LABS: WHITE BLOOD COUNT (AUTO) 36.5 K/uL (4.3-11.0)
--- NOTE | 2018-03-05 06:51 | NUR ---
RN NOTES/ CRITICAL LAB VALUE RECEIVED CRITICAL LAB VALUE FROM LAB ([facility]) WBC 36.5. WBC IS TRENDING DOWN. CHARGE NURSE IS MADE AWARE. WILL ENDORSE TO ONCOMING RN
--- NOTE | 2018-03-05 06:52 | NUR ---
RN CLOSING NOTES PT IS ASLEEP, EASILY AROUSED. PT WAS IN ROOM AIR, TOLERATING WELL, NO SIGNS OF DISTRESS, NO SOB, NO LABORED BREATHING, BREATHING DEEPLY AND EVENLY. OFFERED OXYGEN SUPPLEMENTATION BUT PT DECLINED, STATED "I DON'T NEED IT." CARDIAC MONITORING SHOWS SINUS TACHYCARDIA AT 108BPM. EDEMA ON THE LEG PRESENT, RIGHT FOOT 4+ PITTING, RIGHT LEG 2+ PITTING, LEFT LEG 1+ PITTING, LEFT FOOT 3+ PITTING. WOUNDS ARE PRESENT IN BUE, SACRAL, RIGHT EAR, GROIN REDNESS PICTURES WILL BE TAKEN AND PLACED IN THE CHART. IV ACCESS ON THE LEFT AC 20G IS PATENT AND INTACT, NS AT 75MLS/HR RUNNING. PT DENIES ANY PAIN AT THIS TIME. SAFETY MEASURES IN PLACED, CALL LIGHT WITHIN REACH. WILL ENDORSE CONTINUITY OF CARE TO THE ONCOMING RN
[2018-03-05 07:04] LABS: THYROID STIMULATING HORMONE 0.978 uIU/mL (0.358-3.74)
[2018-03-05 07:10] LABS: ALBUMIN 1.5 g/dL (3.4-5.0); BILIRUBIN,TOTAL 0.2 mg/dL (0.2-1.0); CALCIUM, SERUM 7.9 mg/dL (8.5-10.1); CREATININE 1.2 mg/dL (0.6-1.3); MAGNESIUM 2.1 mg/dL (1.8-2.4); PHOSPHORUS 3.5 mg/dL (2.5-4.9); POTASSIUM 3.8 mmol/L (3.5-5.1); TOTAL PROTEIN, SERUM 6.4 g/dL (6.4-8.2)
[2018-03-05] MEDS ORDERED: FEE PK DOSING 1 MIN EA MC ONE (07:28)
--- NOTE | 2018-03-05 07:30 | NUR ---
PT RECEIVED RESTING COMFORTABLY IN BED WITH EYES CLOSED. NO S/S OR C/O PAIN OR DISTRESS NOTED. SIDE RAILS UP X2, CALL LIGHT LEFT WITHIN REACH. WILL CONTINUE PLAN OF CARE.
[2018-03-05 07:43] LABS: LYMPHOCYTES % (MANUAL) 1 % (16-48); MONOCYTES % (MANUAL) 5 % (0-11.0); NEUTROPHILS % (MANUAL) 94 (42-76)
[2018-03-05 08:00] VITALS: BP 97/60
--- NOTE | 2018-03-05 11:22 | NUR ---
WOUND CARE CONSULT: PT PRESENTS WITH INCONTINENCE, SACRAL DEEP TISSUE INJURY IN EVOLUTION AND DRY SCABS AND DRY ABRASIONS TO LEGS, PRESENT ON ADMISSION. PT IS CACHECTIC. RECOMMENDATIONS MADE FOR WOUND CARE AND SKIN PROTECTION. DISCUSSED WITH NURSING STAFF. FIRST STEP LOW AIRLOSS MATTRESS ORDERED. WILL SEE PRN. ZAZUETA IN AGREEMENT WITH PLAN OF CARE. DIETARY CONSULT IN PLACE. CURRENT ALCON SCORE IS 11. Addendum: 03/05/18 at 1124 by FRIEDA PORTER WNDNU Amended: Links added.
[2018-03-05] MEDS: VANCOMYCIN 500 MG in IV D5W 100 ML IV SCH ×2 (12:10→23:48)
[2018-03-05 16:00] VITALS: BP 91/55
[2018-03-05] MEDS: IV NS 0.9% 1,000 ML IV PRN (18:02)
[2018-03-05] MEDS: VITAMINS A AND D 56.7 GM TUBE TP SCH (18:54)
--- NOTE | 2018-03-05 18:56 | NUR ---
CHANGE OF SHIFT REPORT PT RESTING COMFORTABLY IN BED. NO S/S OR C/O PAIN OR DISTRESS NOTED. SIDE RAILS UP X2, CALL LIGHT LEFT WITHIN REACH. PT KEPT CLEAN, DRY, AND COMFORTABLE. NO SIGNIFICANT CHANGES SINCE PREVIOUS SHIFT. WILL GIVE REPORT TO PHILLIP EASTON.
--- NOTE | 2018-03-05 19:51 | NUR ---
MS/RN RECEIVE PATIENT AWAKE, ALERT, ORIENTED, COMFORTABLE, NO C/O PAIN, NO DISTRESS NOTED, CALL LIGHT IN REACH. WILL MONITOR.
[2018-03-05 20:00] VITALS: BP 106/62
--- NOTE | 2018-03-05 21:36 | NUR ---
MS/RN PATIENT REFUSED F/C INSERTION.
[2018-03-05] MEDS ORDERED: OLANZAPINE 10 MG TABLET PO SCH (22:00)
[2018-03-05] MEDS ORDERED: OLANZAPINE 2.5 MG TABLET ONE (22:42)
[2018-03-05] MEDS: TAMSULOSIN 0.4 MG CAP.SR.24H PO SCH (22:49)
[2018-03-06] VITALS (8 sets, daily range): BP systolic 90–156; BP diastolic 52–71
[2018-03-06] MEDS: IV NS 0.9% 1,000 ML IV PRN ×2 (05:05→22:20)
--- NOTE | 2018-03-06 05:25 | NUR ---
MS/TELE/RN PATIENT WILL HAVE CT PERCUTANEOUS NEPHROSTOMY TODAY, PER PATIENT HE WILL TALK TO THE DOCTOR FIRST BEFORE SIGNING THE CONSENT. WILL ENDORSE.
--- NOTE | 2018-03-06 06:25 | NUR ---
MS/TELE/RN PATIENT STILL SLEEPING, EASILY AROUSABLE, APPEAR COMFORTABLE, NO SIGNS OF DISTRESS NOTED, IVF INFUSING WELL, NPO, ALL NEEDS ATTENDED AT THIS TIME, WILL CONTINUE TO MONITOR.
[2018-03-06 07:34] LABS: PREALBUMIN 5.2 MG/DL (18.0-35.7)
[2018-03-06 07:36] LABS: EOSINOPHILS % (AUTO) 0.2 % (0.0-6.0); HEMATOCRIT 30 % (39-51); HEMOGLOBIN 9.5 g/dL (13.5-17.5); LYMPHOCYTES # (AUTO) 0.3 /CMM (0.8-4.8); LYMPHOCYTES % (AUTO) 1.1 % (20.0-44.0); MEAN CORPUSCULAR HGB CONC 32 g/dl (31.0-36.0); MEAN CORPUSCULAR VOLUME 82 fL (80-96); MONOCYTES # (AUTO) 0.8 /CMM (0.1-1.30); MONOCYTES % (AUTO) 3.4 % (2.0-12.0); NEUTROPHILS # (AUTO) 22.4 /CMM (1.8-8.9); NEUTROPHILS % (AUTO) 95.3 % (43.0-81.0); PLATELET COUNT (AUTO) 585 /CMM (150-450); RDW COEFFICIENT OF VARIATION 16.3 (11.5-15.0); RED BLOOD CELL COUNT(AUTO) 3.63 MIL/uL (4.5-6.0); WHITE BLOOD COUNT (AUTO) 23.5 K/uL (4.3-11.0)
[2018-03-06 07:41] LABS: CALCIUM, SERUM 7.9 mg/dL (8.5-10.1); CREATININE 0.7 mg/dL (0.6-1.3); MAGNESIUM 1.9 mg/dL (1.8-2.4); PHOSPHORUS 2.6 mg/dL (2.5-4.9); POTASSIUM 3.4 mmol/L (3.5-5.1)
[2018-03-06 08:11] LABS: NEUTROPHILS % (MANUAL) 95 (42-76)
[2018-03-06 08:12] LABS: LYMPHOCYTES % (MANUAL) 3 % (16-48); MONOCYTES % (MANUAL) 2 % (0-11.0)
[2018-03-06] MEDS: VENLAFAXINE XR 37.5 MG CAP.SR.24H PO SCH (09:00)
[2018-03-06] MEDS: LACTOBACILLUS RHAMNOSUS GG 1 EACH CAP.SPRINK PO SCH ×2 (09:00→18:00)
--- NOTE | 2018-03-06 09:01 | NUR ---
TELE/RN NOTE CULTURELLE AND EFFEXOR ER DUE AT 0900 NOT ADMINISTERED DUE TO PATIENT NPO FOR CT PERCUTANEOUS NEPHROSTOMY. PATIENT IN NO APPARENT DISTRESS.
[2018-03-06] MEDS: VITAMINS A AND D 56.7 GM TUBE TP SCH (09:11)
[2018-03-06] MEDS: MEROPENEM 500 MG in IV NS 0.9% 50 ML IV SCH ×2 (10:15→22:14)
[2018-03-06] MEDS: POTASSIUM CL. PREMIX PERIPHER. 50 ML IV SCH ×2 (11:17→12:13)
--- NOTE | 2018-03-06 11:49 | NUR ---
RN NOTE ATTEMPTED TO REMOVE SECOND BAG OF POTASSIUM CHLORIDE IV FOR ONCE THE OTHER BAG FINISHES INFUSING, HOWEVER, WHEN OPENED OMNICELL DOOR THE DESIGNATED BOX WAS EMPTY. CALLED PHARM AND MADE KEN AWARE THAT OMNICELL OPENED, HOWEVER, THERE THE MEDICATION WAS NOT THERE. PER KEN THEY WILL FILL IT UP.
[2018-03-06] MEDS: VANCOMYCIN 500 MG in IV D5W 100 ML IV SCH (13:23)
--- NOTE | 2018-03-06 16:32 | NUR ---
MS/RN NOTE CABLE PULLER JAK IS MADE AWARE OF SWALLOW EVAL REPORT (DONE BY ST) AND REGULAR DIET ORDER IS RECEIVED. THE ORDER NOTED AND CARRIED OUT. PER CABLE PULLER JAK CT PERCUTANEOUS NEPHROSTOMY TUBE PLACEMENT IS POSTPONED DUE TO INR 3.31.
--- NOTE | 2018-03-06 19:00 | NUR ---
MS/RN CLOSING NOTE PATIENT ALERT AND ORIENTED X3. DENIES SOB. RESPIRATION REGULAR AND UNLABORED. DENIES PAIN. IV SITE INTACT WITH NO S/S INFILTRATION. BED LOW AND LOCKED. SIDE RAILS UP X3. CALL LIGHT WITHIN REACH. WILL ENDORSE TO WHITE SPOOLER.
--- NOTE | 2018-03-06 19:30 | NUR ---
MS/TELE/RN RECEIVE PATIENT AWAKE, ALERT, ORIENTED, COMFORTABLE, NO C/O PAIN, NO SIGNS OF DISTRESS NOTED, TEACHINGS ON POSSIBLE NEPHROSTOMY TOMORROW, AND PLASMA TRANSFUSION TONIGHT DONE, VERBALIZED UNDERSTANDING. OFFERED TO SIGN CONSENT FOR THE SURGERY, BUT PATIENT SAID HE WILL TALK TO THE DOCTOR FIRST TOMORROW BEFORE HE SIGNS THE CONSENT.
[2018-03-06] MEDS: HYDROCODONE/APAP 5/325MG 1 EACH TABLET PO PRN (20:24)
--- NOTE | 2018-03-06 21:30 | NUR ---
MS/TELE/RN FFP TRANSFUSION STARTED ORDERED. WILL MONITOR PER PROTOCOL.
--- NOTE | 2018-03-06 21:53 | NUR ---
MS/TELE/RN FFP TRANSFUSION FINISHED, VITAL SIGNS STABLE, AFEBRILE, NO REACTION NOTED. WILL CONTINUE TO MONITOR.
[2018-03-06] MEDS ORDERED: OLANZAPINE 2.5 MG TABLET PO SCH (22:00)
[2018-03-06] MEDS: TAMSULOSIN 0.4 MG CAP.SR.24H PO SCH (22:14)
[2018-03-06] MEDS: VANCOMYCIN 0.75 GM in IV D5W 250 ML IV SCH (23:47)
[2018-03-07] VITALS (14 sets, daily range): BP systolic 91–120; BP diastolic 48–66
--- NOTE | 2018-03-07 00:38 | NUR ---
MS/TELE/RN PATIENT IS SLEEPING AT THIS TIME, AROUSABLE, APPEAR COMFORTABLE, NO SIGNS OF DISTRESS NOTED, CALL LIGHT IN REACH. WILL CONTINUE TO MONITOR.
--- NOTE | 2018-03-07 06:36 | NUR ---
MS/TELE/RN PATIENT STILL SLEEPING AT THIS TIME, EASILY AROUSABLE, APPEAR COMFORTABLE, NO SIGNS OF DISTRESS NOTED, CALL LIGHT IN REACH, ALL NEEDS ATTENDED AT THIS TIME. WILL CONTINUE TO MONITOR.
[2018-03-07 07:06] LABS: EOSINOPHILS % (AUTO) 1.4 % (0.0-6.0); HEMATOCRIT 27 % (39-51); HEMOGLOBIN 8.7 g/dL (13.5-17.5); LYMPHOCYTES # (AUTO) 0.4 /CMM (0.8-4.8); MEAN CORPUSCULAR HGB CONC 32 g/dl (31.0-36.0); MEAN CORPUSCULAR VOLUME 83 fL (80-96); MONOCYTES # (AUTO) 0.7 /CMM (0.1-1.30); MONOCYTES % (AUTO) 4.1 % (2.0-12.0); NEUTROPHILS # (AUTO) 16.6 /CMM (1.8-8.9); NEUTROPHILS % (AUTO) 92.5 % (43.0-81.0); PLATELET COUNT (AUTO) 571 /CMM (150-450); RDW COEFFICIENT OF VARIATION 16.2 (11.5-15.0); RED BLOOD CELL COUNT(AUTO) 3.28 MIL/uL (4.5-6.0)
[2018-03-07 07:15] LABS: CREATININE 0.7 mg/dL (0.6-1.3); POTASSIUM 3.6 mmol/L (3.5-5.1)
[2018-03-07 07:16] LABS: INR 1.15 (0.87-1.13)
[2018-03-07 07:26] LABS: THYROID STIMULATING HORMONE 0.84 uIU/mL (0.358-3.74)
--- NOTE | 2018-03-07 07:40 | NUR ---
MS/RN OPENING NOTE PATIENT ALERT AND ORIENTED X4. DENIES PAIN. RESPIRATION REGULAR AND UNLABORED. DENIES SOB. PATIENT IN ROOM AIR. NPO SINCE MIDNIGHT. PATIENT IN NO APPARENT DISTRESS. RAC G 20 PATENT AND NORMAL SALINE INFUSING AT 125 ML/HR. BED LOW AND LOCKED. SIDE RAILS UP X3. CALL LIGHT WITHIN REACH. WILL CONTINUE TO MONITOR.
[2018-03-07] MEDS: FERROUS SULFATE (325 MG) 325 MG/TAB TABLET PO SCH ×2 (09:00→18:38)
[2018-03-07] MEDS: VENLAFAXINE XR 37.5 MG CAP.SR.24H PO SCH (09:00)
[2018-03-07] MEDS: LACTOBACILLUS RHAMNOSUS GG 1 EACH CAP.SPRINK PO SCH ×2 (09:00→18:38)
[2018-03-07] MEDS: VITAMINS A AND D 56.7 GM TUBE TP SCH (09:00)
[2018-03-07] MEDS ORDERED: IV NS 0.9% 250 ML IV ONE (09:55)
[2018-03-07] MEDS ORDERED: IOHEXOL-300 100 ML VIAL IV ONE (09:55)
--- NOTE | 2018-03-07 10:03 | NUR ---
RN NOTE 0900 DUE PO MEDICATIONS NOT GIVEN DUE TO PATIENT NPO FOR DIAGNOSIS.
[2018-03-07] MEDS ORDERED: FENTANYL PF 250MCG/5ML AMPUL IV ONE (10:30)
[2018-03-07] MEDS ORDERED: MIDAZOLAM HCL 5MG/ML VIAL 25 MG/5 ML VIAL IV ONE (10:30)
[2018-03-07] MEDS ORDERED: NALOXONE PREFILLED SYRINGE 2 MG/2 ML SYRINGE IV ONE (10:30)
--- NOTE | 2018-03-07 10:32 | NUR ---
RN NOTE VITAMIN A AND D DUE AT 0900 NOT ADMINISTERED YET BECAUSE THE PHARM HAS NOT SENT THE MEDICATION AND MERREM 500 MG DUE AT 1000 NOT ADMINISTERED DUE TO SUAD HERNANDEZ TAKEN FOR DIAGNOSIS. WILL ADMINISTER THESE MEDICATIONS WHEN THE MEDICATION IS AVAILABLE AND THE PATIENT IS BACK IN THE ROOM.
[2018-03-07] MEDS ORDERED: LIDOCAINE 2%-EPI 1:100,000 30 ML VIAL TP ONE (11:30)
[2018-03-07] MEDS ORDERED: SILVER NITRATE APPLICATOR 1 EA BOX TP ONE (11:30)
--- NOTE | 2018-03-07 13:34 | NUR ---
MS/RN NOTE PATIENT IS BROUGHT BACK TO THE ROOM IN BED. PATIENT ALERT AND ORIENTED X4. PATIENT IS RECEIVING OXYGEN AT 2L/MIN VIA NASAL CANNULA. DENIES SOB. DENIES PAIN. RIGHT AND LEFT NEPHROSTOMY TUBES IN PLACE. NO BLEEDING AT THE INCISION SITES NOTED. BED LOW AND LOCKED. SIDE RAILS UP X3. CALL LIGHT WITHIN REACH. WILL CONTINUE TO MONITOR.
[2018-03-07] MEDS: MEROPENEM 500 MG in IV NS 0.9% 50 ML IV SCH ×2 (14:03→21:57)
[2018-03-07] MEDS: IV NS 0.9% 1,000 ML IV PRN (14:25)
[2018-03-07] MEDS: VANCOMYCIN 0.75 GM in IV D5W 250 ML IV SCH (15:07)
[2018-03-07] MEDS: HYDROCODONE/APAP 5/325MG 1 EACH TABLET PO PRN ×2 (15:08→22:38)
--- NOTE | 2018-03-07 15:08 | NUR ---
MS/RN NOTE SPOKE WITH JANINA BENEDICT AND VERIFIED STAT ORDER OF PLASMA. MADE HIM AWARE THAT PER LAB STAT PLASMA WILL BE AVAILABLE IN FEW HOURS. JANINA BENEDICT OK WITH TIME. PER JANINA CARRILLO PATIENT MAY RESTART REGULAR DIET.
--- NOTE | 2018-03-07 15:10 | NUR ---
MS/RN NOTE LAC AC G 20 INSERTED. PATIENT TOLERATED IT WELL. VANCOMYCIN IS ADMINISTER LATE DUE TO PATIENT WAS GETTING PROCEDURE EARLIER.
--- NOTE | 2018-03-07 18:19 | NUR ---
MS/RN CLOSING NOTE PATIENT ALERT AND ORIENTED X4. DENIES SOB. RESPIRATION REGULAR AND UNLABORED. DENIES PAIN. PATIENT IN NO APPARENT DISTRESS. RIGHT AND LEFT NEPHROSTOMY TUBES IN PACE AND DRAINING WELL. NEPHROSTOMY SITES WITH NO BLEEDING. PATIENT DONE WITH PLASMA TRANSFUSION BAG 1. NO ADVERSE REACTIONS NOTED. RAC G [address] IN PL[address]. GOOD SKIN CARE RENDERED. ALL NEEDS ATTENDED. BED LOW AND LOCKED. SIDE RAILS UP X3. CALL LIGHT WITHIN REACH. WILL ENDORSE TO X RAY SERVICE TECHNICIAN.
--- NOTE | 2018-03-07 18:30 | NUR ---
MS/RN NOTE RIGHT NEPHROSTOMY TUBE DRAINED 150 ML PINK, LEFT NEPHROSTOMY TUBE 200 PINK AND CONDOM CATH 300 ML PINK OUTPUTS.
[2018-03-07 18:33] LABS: HEMOGLOBIN 9.1 g/dL (13.5-17.5)
[2018-03-07] MEDS: TAMSULOSIN 0.4 MG CAP.SR.24H PO SCH (21:59)
[2018-03-08] MEDS: VANCOMYCIN 0.75 GM in IV D5W 250 ML IV SCH ×2 (00:30→12:51)
[2018-03-08 01:20] LABS: HEMOGLOBIN 8.3 g/dL (13.5-17.5)
--- NOTE | 2018-03-08 06:58 | NUR ---
MS/TELE/RN PATIENT IS AWAKE AT THIS TIME, COMFORTABLE, NO DISTRESS NOTED. NEPHROSTOMY OUTPUT PINKISH IN COLOR, RT. SIDE 200, LEFT SIDE 400. ALL NEEDS ATTENDED AT THIS TIME. WILL CONTINUE TO MONITOR.
[2018-03-08 07:00] LABS: EOSINOPHILS % (AUTO) 0.9 % (0.0-6.0); HEMATOCRIT 29 % (39-51); HEMOGLOBIN 9.3 g/dL (13.5-17.5); LYMPHOCYTES # (AUTO) 0.4 /CMM (0.8-4.8); LYMPHOCYTES % (AUTO) 1.6 % (20.0-44.0); MEAN CORPUSCULAR HGB CONC 32 g/dl (31.0-36.0); MEAN CORPUSCULAR VOLUME 83 fL (80-96); MONOCYTES # (AUTO) 0.8 /CMM (0.1-1.30); MONOCYTES % (AUTO) 2.9 % (2.0-12.0); NEUTROPHILS # (AUTO) 25.7 /CMM (1.8-8.9); NEUTROPHILS % (AUTO) 94.6 % (43.0-81.0); PLATELET COUNT (AUTO) 572 /CMM (150-450); RDW COEFFICIENT OF VARIATION 15.7 (11.5-15.0); RED BLOOD CELL COUNT(AUTO) 3.52 MIL/uL (4.5-6.0); WHITE BLOOD COUNT (AUTO) 27.1 K/uL (4.3-11.0)
[2018-03-08 07:09] LABS: CALCIUM, SERUM 7.9 mg/dL (8.5-10.1); CREATININE 0.7 mg/dL (0.6-1.3); POTASSIUM 3.5 mmol/L (3.5-5.1)
--- NOTE | 2018-03-08 08:00 | NUR ---
MS RN RECEIVED ON BED, AWAKE, ALERT,ORIENTED X3,NOT IN ANY FORM OF DISTRESS, RESPIRATIONS EVEN AND UNLABORED,NO SOB NOTED, LUNGS ARE CLEAR,ABDOMEN SOFT,POSITIVE BOWEL SOUNDS,NEPHROSTOMY INTACT W/ PINKISH OUTPUT, DENIES PAIN AT THIS TIME,ALL NEEDS ATTENDED.
[2018-03-08 08:09] LABS: IMMUNOGLOBULIN A, SERUM 436 mg/dL (61-437); IMMUNOGLOBULIN G, SERUM 1006 mg/dL (700-1600); IMMUNOGLOBULIN M, SERUM 48 mg/dL (20-172)
[2018-03-08 08:17] VITALS: BP 106/64
--- NOTE | 2018-03-08 09:00 | NUR ---
MS EASTON BREAKFAST SERVED,DUE MEDS GIVEN, TOLERATED WELL.
[2018-03-08] MEDS: MEROPENEM 500 MG in IV NS 0.9% 50 ML IV SCH ×2 (09:07→21:08)
[2018-03-08] MEDS: LACTOBACILLUS RHAMNOSUS GG 1 EACH CAP.SPRINK PO SCH ×2 (09:08→17:20)
[2018-03-08] MEDS: VENLAFAXINE XR 37.5 MG CAP.SR.24H PO SCH (09:08)
[2018-03-08] MEDS: FERROUS SULFATE (325 MG) 325 MG/TAB TABLET PO SCH ×2 (09:08→17:20)
[2018-03-08] MEDS: VITAMINS A AND D 56.7 GM TUBE TP SCH (09:14)
[2018-03-08] MEDS: IV NS 0.9% 1,000 ML IV PRN ×2 (09:15→19:51)
[2018-03-08] MEDS: HYDROCODONE/APAP 5/325MG 1 EACH TABLET PO PRN ×2 (13:03→19:58)
[2018-03-08 15:11] LABS: *SPE A/G RATIO 0.6 (0.7-1.7); *SPE ALBUMIN 1.8 g/dL (2.9-4.4); *SPE ALPHA-1-GLOBULIN 0.5 g/dL (0.0-0.4); *SPE ALPHA-2-GLOBULIN 0.8 g/dL (0.4-1.0); *SPE BETA GLOBULIN 0.9 g/dL (0.7-1.3); *SPE GLOBULIN, TOTAL 3.1 g/dL (2.2-3.9); *SPE M-SPIKE Not Observed g/dL (Not Observed); *SPEGAMMA GLOBULIN 0.9 g/dL (0.4-1.8)
[2018-03-08 16:22] VITALS: BP 112/54
--- NOTE | 2018-03-08 16:42 | NUR ---
MS RN WAS SEEN BY DR. ANDREA, AWAITING FOR ORDERS.
--- NOTE | 2018-03-08 18:51 | NUR ---
ms rn on bed, no distress noted.
--- NOTE | 2018-03-08 19:50 | NUR ---
RN INITIAL NOTES; RECEIVED REPORT FROM ELIDIA EASTON. PT IN BED, AWAKE, A/O X3, ON RA RESPIRATION EVEN AND UNLABORED. IV ACCESS ON LEFT AC PATENT AND FLUSHING WELL, INFUSING WITH NS AT 125ML/HR. BLE OFFLOADED ON PILLOWS. S/P NEPHROSTOMY TUBE PLACEMENT ON 03/07,RIGHT NEPHROSTOMY TUBE DRESSING C/D/I, NO ACTIVE BLEEDING NOTED, URINE COLOR NOTED TO BE PINKISH TO YELLOW WITH CLEAR TRANSPARENCY. LEFT NEPHROSTOMY TUBE DRESSING C/D/I, NO ACTIVE BLEEDING NOTED, URINE COLOR NOTED TO BE YELLOW WITH CLEAR TRANSPARENCY. PT REMOVED HIS CONDOM CATHETER, OUTPUT NOTED TO BE PINKISH COLOR WITH CLOUDY APPEARANCE. ON KCI MATTRESS. SAFETY PRECAUTION FOR FALL INITIATED, CALL LIGHT IN REACH, WILL CONTINUE TO MONITOR PT.
--- NOTE | 2018-03-08 19:59 | NUR ---
PRN NORCO: PT C/O 12/12 SACRAL, FLANK AND SHOULDER PAIN REQUESTING FOR NORCO, PRN NORCO 5/325 MG TAB PO ADMINISTERED TO THE PT AT THI TIME. WILL CONTINUE TO MONITOR AND REASSESS
[2018-03-08 20:00] VITALS: BP 115/67
--- NOTE | 2018-03-08 21:00 | NUR ---
RN NOTES: PLACED NEW CONDOM CATH, AFTER 30MINS PT TOOK IT OFF. PLACED IT AGAIN, AFTER 20MINS, PT REMOVED IT AGAIN,
[2018-03-08] MEDS: TAMSULOSIN 0.4 MG CAP.SR.24H PO SCH (21:08)
--- NOTE | 2018-03-08 22:00 | NUR ---
REFUSED TURNING AND REPOSITION: PT REFUSED TO BE REPOSITION AT THIS TIME, STATED HE CAN DO IT ON HIS OWN. EDUCATE PT REGARDING IMPORTANCE, RISK AND BENEFITS AND REPOSITIONING AND TURNING IN ORDER TO PREVENT PRESSURE ULCER WORSENING OR PROGRESSION. PT IS PASSIVE,STILL REFUSED.
[2018-03-08] MEDS ORDERED: VANCOMYCIN 1 GM VIAL ONE (22:33)
[2018-03-08] MEDS: VANCOMYCIN 1 GM in IV D5W 250 ML IV SCH (22:53)
--- NOTE | 2018-03-09 | NUR ---
REFUSED TURNING AND REPOSITION: OFFERED TO BE REPOSITION, BUT PT REFUSED, STATED HE CAN TURN ON HIS OWN AND HE'S COMFORTABLE WITH HIS POSITION RIGHT NOW. INFORMED PT HE'S BEEN LAYING ON HIS BACK FOR TOO LONG. EMPHASIZED IMPORTANCE OF TURNING AND REPOSITIONING TO PREVENT RE-OCCURRENCE OF PRESSURE ULCER.
--- NOTE | 2018-03-09 02:14 | NUR ---
refused turning and reposition: pt refused again to be reposition. education provided to the pt, engraving patternmaker aware of pt refusal.
--- NOTE | 2018-03-09 04:13 | NUR ---
REFUSED TO BE REPOSITION: OFFERED AND ENCOURAGED PT TO BE REPOSITION, BUT PT STILL REFUSED. CLAIMED THAT HE'S BEEN TURNING ON HIS OWN. RE-EDUCATE PT REGARDING IMPORTANCE OF TURNING AND REPOSITIONING AND HOW IT PREVENTS PROGRESSION OR WORSENING OF HIS PRESSURE ULCER. BUT PT REMAINS TO REFUSED.
--- NOTE | 2018-03-09 06:49 | NUR ---
rn closing notes: pt in bed, awake, remains a/o x3, on 2l nc, respiration even and unlabored. iv access remains patent and flushing well, infusing with ns at 125ml/hr. bilateral nephrostomy tube remains in placed, dressing c/d/i. bag emptied. right nephrostomy tube bag has total output of 450ML NITHYA colored urine. left nephrostomy tube bag emptied and obtained total output of 400ml NITHYA colored urine. condom catheter in placed, bag emptied OBTAINED PINKISH COLORED URINE 400ML. vs remains stable, needs attended. safety precautions for fall remains engaged, call light in reach, will endorse to day rn for continuity of care
--- NOTE | 2018-03-09 07:15 | NUR ---
MS RN INITIAL NOTES Report received at bedside. Patient remained in bed, sleeping comfortably, easily aroused. Alert and orientedx2-3, verbally responsive. Denies any pain. Not in any type of distress. Right Nephrostomy in place with slightly pink colored output. Left Nephrostomy in place with samantha colored output. Safety measures in place. Will continue to monitor and assess patient.
[2018-03-09 07:31] LABS: CALCIUM, SERUM 7.6 mg/dL (8.5-10.1); CREATININE 0.5 mg/dL (0.6-1.3); POTASSIUM 2.9 mmol/L (3.5-5.1)
[2018-03-09 08:16] VITALS: BP 100/60
[2018-03-09] MEDS: LACTOBACILLUS RHAMNOSUS GG 1 EACH CAP.SPRINK PO SCH ×2 (08:25→17:10)
[2018-03-09] MEDS: VENLAFAXINE XR 75 MG CAP.SR.24H PO SCH ×2 (08:25→08:48)
[2018-03-09] MEDS: FERROUS SULFATE (325 MG) 325 MG/TAB TABLET PO SCH ×2 (08:25→17:10)
--- NOTE | 2018-03-09 08:49 | NUR ---
MS EASTON - NON-ADMIN NOTES Patient refused to take effexor. Explained risks vs benefits x3. Patient still refused Addendum: 03/09/18 at 0851 by YARELI WALKER RN Patient also refused to be turned and repositioned. Explained risks vs benefits x3. Re-oriented that pt has a pressure ulcer that needs to be relieved from pressure. Patient still refused.
[2018-03-09 09:02] LABS: EOSINOPHILS % (AUTO) 1.9 % (0.0-6.0); HEMATOCRIT 27 % (39-51); HEMOGLOBIN 8.4 g/dL (13.5-17.5); LYMPHOCYTES # (AUTO) 0.3 /CMM (0.8-4.8); LYMPHOCYTES % (AUTO) 2.5 % (20.0-44.0); MEAN CORPUSCULAR HGB CONC 31 g/dl (31.0-36.0); MEAN CORPUSCULAR VOLUME 83 fL (80-96); MONOCYTES # (AUTO) 0.6 /CMM (0.1-1.30); MONOCYTES % (AUTO) 4.1 % (2.0-12.0); NEUTROPHILS # (AUTO) 12.7 /CMM (1.8-8.9); NEUTROPHILS % (AUTO) 91.5 % (43.0-81.0); PLATELET COUNT (AUTO) 537 /CMM (150-450); RDW COEFFICIENT OF VARIATION 16.3 (11.5-15.0); RED BLOOD CELL COUNT(AUTO) 3.24 MIL/uL (4.5-6.0); WHITE BLOOD COUNT (AUTO) 13.9 K/uL (4.3-11.0)
[2018-03-09] MEDS: MEROPENEM 500 MG in IV NS 0.9% 50 ML IV SCH ×2 (11:10→22:19)
[2018-03-09] MEDS: VANCOMYCIN 1 GM in IV D5W 250 ML IV SCH ×2 (11:57→23:42)
--- NOTE | 2018-03-09 12:02 | NUR ---
MS RN - NON ADMIN NOTES Called A&D to pharmacy this morning. Awaiting for delivery.
[2018-03-09] MEDS: VITAMINS A AND D 56.7 GM TUBE TP SCH (12:03)
--- NOTE | 2018-03-09 14:44 | NUR ---
MARLIN FROM [facility] CALLED REGARDING CRISIS TEAM NANO BENEDICT DANCE CRITIC. SHE WILL F/U AND CALL US BACK. PT IS IN BED, NOT SHOWING ANY BEHAVIOR SYMPTOMS AT THIS TIME, WILL CONTINUE TO MONITOR.
[2018-03-09 15:54] VITALS: BP 102/64
[2018-03-09] MEDS: HYDROCODONE/APAP 5/325MG 1 EACH TABLET PO PRN (18:57)
--- NOTE | 2018-03-09 19:30 | NUR ---
MS RN CLOSING NOTES Report given at bedside. Patient remained in bed, awake, verbally responsive. All due meds given and tolerated. Complained of pain with help of pain mgmt given @1858. On continuous oxygen therapy @2LPM via nasal cannula with No SOB/labored breathing noted. Not in any type of distress. Afebrile. On condom cath for strict I&O 0cc; Right Nephrostomy 760cc output; Left Nephrostomy 520cc output. IV on left antecubital #20g with NS running @125ml/hr, tolerating well. Patient refused to take psych meds, turn & reposition, wound treatment and diaper change; reported by PHARMACIST HELPER as well. Explained risks vs benefits but pt still refused. Patient was seen by Jovan Burks with episodes of psychotic features. Dr. Valdez at bedside early today to assess patient. Continue to encourage patient to increase oral intake. Crisis Team came to assess patient. Continue on antibiotic therapy for PNA and sepsis. All needs anticipated and met. Bed in locked and lowest positoin with bed alarm on and call light within reach. Endorsed to oncoming shift nurse.
[2018-03-09 19:40] VITALS: BP 103/58
--- NOTE | 2018-03-09 19:52 | NUR ---
PATIENT RECIEVED ALERT AND ORIENTATED MERGED WITH [facility] CLEAR CALL LIGHT REVIEVED WITH THE PATIENT AND EXPLAINED TO HIM TO CALL ME IF NEED TO GET OOB OR NEEDING ASSIST. EXPLAINED TO HIM THAT I WOULD BE AT THE BEDSIDE WHEN THE WRAPPER OPENER REPOSITIONS HIM AND TO CLEAN HIM D/T I NEED TO SEE HIS SKIN ON HIS BOTTOM AND BACK AND DO A DRESSING CHANGE TO HELP THE WOUND TO HEAL, HE SAID "OKAY" AT THIS TIME
[2018-03-09 20:00] VITALS: BP 103/58
[2018-03-09] MEDS: IV NS 0.9% 1,000 ML IV PRN (20:48)
[2018-03-09] MEDS: TAMSULOSIN 0.4 MG CAP.SR.24H PO SCH (22:19)
[2018-03-10 07:29] LABS: EOSINOPHILS % (AUTO) 1.1 % (0.0-6.0); HEMATOCRIT 28 % (39-51); HEMOGLOBIN 8.8 g/dL (13.5-17.5); LYMPHOCYTES # (AUTO) 0.4 /CMM (0.8-4.8); LYMPHOCYTES % (AUTO) 2.5 % (20.0-44.0); MEAN CORPUSCULAR HGB CONC 32 g/dl (31.0-36.0); MEAN CORPUSCULAR VOLUME 83 fL (80-96); MONOCYTES # (AUTO) 0.7 /CMM (0.1-1.30); MONOCYTES % (AUTO) 4.1 % (2.0-12.0); NEUTROPHILS # (AUTO) 14.7 /CMM (1.8-8.9); NEUTROPHILS % (AUTO) 92.3 % (43.0-81.0); PLATELET COUNT (AUTO) 521 /CMM (150-450); RDW COEFFICIENT OF VARIATION 15.6 (11.5-15.0); RED BLOOD CELL COUNT(AUTO) 3.32 MIL/uL (4.5-6.0); WHITE BLOOD COUNT (AUTO) 15.9 K/uL (4.3-11.0)
--- NOTE | 2018-03-10 07:30 | NUR ---
MS RN OPENING NOTES RECEIVED PT LAYING IN BED WITH HOB ELEVATED. PT IS A/O X3, AFEBRILE. RESPIRATIONS ARE EVEN AND UNLABORED, NOT IN ANY ACUTE DISTRESS NOTED. PT DENIES ANY PAIN AT THIS TIME. NO C/O SOB, N/V. IV SITE TO LAC INTACT, NO INFILTRATION NOTED. DRESSING KEPT CLEAN AND DRY. IV FLUIDS RUNNING AT 125ML/HR, TOLERATING WELL. NEPHROSTOMY TUBES NOTED TO BE INTACT, FREE OF KINKS. DRAINING YELLOW FLUID. NOTED WITH CONDOM CATHETER, INTACT, PLACED IN PROPER POSITION. DRAINING YELLOW URINE. SAFETY MEASURES ARE IN PLACE. INSTRUCTED PT TO USE CALL LIGHT WHEN ASSISTANCE IS NEEDED, CALL LIGHT IS LEFT WITHIN REACH. WILL CONTINUE TO MONITOR THROUGHOUT SHIFT FOR CONTINUITY OF CARE.
[2018-03-10 07:40] LABS: CALCIUM, SERUM 7.5 mg/dL (8.5-10.1); CREATININE 0.5 mg/dL (0.6-1.3)
[2018-03-10 07:58] LABS: POTASSIUM 2.8 mmol/L (3.5-5.1)
[2018-03-10 08:00] VITALS: BP 97/65
[2018-03-10] MEDS: FERROUS SULFATE (325 MG) 325 MG/TAB TABLET PO SCH ×2 (08:19→17:13)
[2018-03-10] MEDS: VENLAFAXINE XR 75 MG CAP.SR.24H PO SCH (08:19)
[2018-03-10] MEDS: LACTOBACILLUS RHAMNOSUS GG 1 EACH CAP.SPRINK PO SCH ×2 (08:19→17:13)
[2018-03-10] MEDS: VITAMINS A AND D 56.7 GM TUBE TP SCH (08:20)
[2018-03-10] MEDS: MEROPENEM 500 MG in IV NS 0.9% 50 ML IV SCH ×2 (09:02→22:03)
[2018-03-10] MEDS: POTASSIUM CHLORIDE 20 MEQ TAB.PRT.SR PO SCH ×3 (09:37→10:33)
[2018-03-10] MEDS: VANCOMYCIN 1 GM in IV D5W 250 ML IV SCH (10:16)
[2018-03-10] MEDS: IV NS 0.9% 1,000 ML IV PRN ×2 (11:32→20:02)
[2018-03-10] MEDS: HYDROCODONE/APAP 5/325MG 1 EACH TABLET PO PRN ×2 (11:35→20:03)
--- NOTE | 2018-03-10 14:30 | NUR ---
MS RN NOTES-- PT SEEN AND EXAMINED BY JANINA BENEDICT.
[2018-03-10 16:00] VITALS: BP 108/62
--- NOTE | 2018-03-10 18:28 | NUR ---
MS RN NOTES-- PT SEEN AND EXAMINED BY ID.
--- NOTE | 2018-03-10 18:29 | NUR ---
MS RN OPENING NOTES ALL DUE MEDS GIVEN, NEEDS MET AND RENDERED. PT IS A/O X3, AFEBRILE. RESPIRATIONS ARE EVEN AND UNLABORED, NOT IN ANY ACUTE DISTRESS NOTED. PT DENIES ANY PAIN AT THIS TIME. NO C/O SOB, N/V. IV SITE TO LAC INTACT, NO INFILTRATION NOTED. DRESSING KEPT CLEAN AND DRY. IV FLUIDS RUNNING AT 125ML/HR, TOLERATING WELL. NEPHROSTOMY TUBES NOTED TO BE INTACT, FREE OF KINKS. DRAINING 950ML YELLOW FLUID TO RIGHT, 550ML TO LEFT. NOTED WITH CONDOM CATHETER, INTACT, PLACED IN PROPER POSITION. DRAINING YELLOW URINE. SAFETY MEASURES ARE IN PLACE. CALL LIGHT IS LEFT WITHIN REACH. WILL ENDORSE TO NEXT SHIFT FOR CONTINUITY OF CARE. Addendum: 03/10/18 at 1831 by ESHA GIBBONS RN CORRECTION-- MS EASTON CLOSING NOTES
--- NOTE | 2018-03-10 19:34 | NUR ---
MS RN OPENING NOTES PT WAS RECEIVED IN BED IN SEMIFOWLERS POSITION WITH SIDE RAILS UP X2, A/O X3, NO S/S OF PAIN OR DISTRESS NOTED, BREATHING IS EVEN AND UNLABORED ON 2L VIA NC, PT HAS A CONDOM CATH AND NEPHROSTOMY ON BOTH THE LEFT AND RIGHT SIDE THAT ARE CURRENTLY DRAINING, IV IS PATENT AND INTACT, SAFETY PRECAUTIONS IN PLACE, CALL LIGHT WITHIN REACH, WILL CONTINUE TO MONITOR ACCORDINGLY
[2018-03-10 20:00] VITALS: BP 109/55
[2018-03-10] MEDS: VANCOMYCIN 0.75 GM in IV D5W 250 ML IV SCH (20:02)
[2018-03-10] MEDS: TAMSULOSIN 0.4 MG CAP.SR.24H PO SCH (22:03)
[2018-03-11] MEDS: VANCOMYCIN 0.75 GM in IV D5W 250 ML IV SCH ×3 (03:12→20:13)
--- NOTE | 2018-03-11 06:37 | NUR ---
MS RN CLOSING NOTES PT IN BED IN SEMIFOWLERS POSITION WITH SIDE RAILS UP X2, A/O X3, NO S/S OF PAIN OR DISTRESS NOTED, BREATHING IS EVEN AND UNLABORED ON 2L VIA NC, PT HAS A CONDOM CATH AND NEPHROSTOMY ON BOTH THE LEFT AND RIGHT SIDE THAT ARE CURRENTLY DRAINING; RIGHT SIDE - 800 AND LEFT SIDE - 600, IV IS PATENT AND INTACT, SAFETY PRECAUTIONS IN PLACE, ALL NEEDS ATTENDED TO, CALL LIGHT WITHIN REACH, WILL ENDORSE TO DAY SHIFT FOR CONTINUITY OF CARE
--- NOTE | 2018-03-11 07:10 | NUR ---
RN OPENING NOTES RECEIVED PATIENT IN BED RESTING, IN SEMIFOWLERS POSITION WITH SIDE RAILS UP X2, A/O X3, ABLE TO MAKE NEEDS KNOWN. ON 2LPM VIA NC, SATTING 98%. NO ACUTE DISTRESS, NO SOB. DENIED PAIN OR DISCOMFORT AT THE MOMENT. PATIENT HAS A CONDOM CATH AND NEPHROSTOMY ON BOTH THE LEFT AND RIGHT SIDE THAT ARE CURRENTLY DRAINING URINE. IV IS PATENT AND INTACT, SAFETY PRECAUTIONS IN PLACE. BED IN LOW/LOCKED POSITION, CALL LIGHT WITHIN REACH, WILL CONTINUE TO MONITOR ACCORDINGLY
[2018-03-11 08:00] VITALS: BP 127/71
[2018-03-11 08:45] LABS: CALCIUM, SERUM 7.5 mg/dL (8.5-10.1); CREATININE 0.5 mg/dL (0.6-1.3); POTASSIUM 2.9 mmol/L (3.5-5.1)
[2018-03-11] MEDS: MEROPENEM 500 MG in IV NS 0.9% 50 ML IV SCH ×2 (09:09→21:54)
[2018-03-11] MEDS: HYDROCODONE/APAP 5/325MG 1 EACH TABLET PO PRN ×3 (09:09→21:55)
[2018-03-11] MEDS: FERROUS SULFATE (325 MG) 325 MG/TAB TABLET PO SCH ×2 (09:10→16:45)
[2018-03-11] MEDS: VENLAFAXINE XR 75 MG CAP.SR.24H PO SCH (09:10)
[2018-03-11] MEDS: LACTOBACILLUS RHAMNOSUS GG 1 EACH CAP.SPRINK PO SCH ×2 (09:10→16:46)
[2018-03-11] MEDS: VITAMINS A AND D 56.7 GM TUBE TP SCH (09:14)
[2018-03-11] MEDS: IV NS 0.9% 1,000 ML IV PRN ×2 (09:15→23:54)
[2018-03-11 10:32] LABS: BASOPHILS % (AUTO) 0.1 % (0.0-2.0); EOSINOPHILS % (AUTO) 1.3 % (0.0-6.0); HEMATOCRIT 27 % (39-51); HEMOGLOBIN 8.4 g/dL (13.5-17.5); LYMPHOCYTES # (AUTO) 0.4 /CMM (0.8-4.8); MEAN CORPUSCULAR HGB CONC 31 g/dl (31.0-36.0); MEAN CORPUSCULAR VOLUME 83 fL (80-96); MONOCYTES # (AUTO) 0.7 /CMM (0.1-1.30); MONOCYTES % (AUTO) 4.7 % (2.0-12.0); NEUTROPHILS # (AUTO) 13.5 /CMM (1.8-8.9); NEUTROPHILS % (AUTO) 90.9 % (43.0-81.0); PLATELET COUNT (AUTO) 505 /CMM (150-450); RDW COEFFICIENT OF VARIATION 15.7 (11.5-15.0); RED BLOOD CELL COUNT(AUTO) 3.28 MIL/uL (4.5-6.0); WHITE BLOOD COUNT (AUTO) 14.8 K/uL (4.3-11.0)
[2018-03-11] MEDS: POTASSIUM CHLORIDE 20 MEQ TAB.PRT.SR PO SCH ×3 (11:55→15:52)
[2018-03-11] MEDS: GUAIFENESIN LA 600 MG TABLET.SA PO PRN ×2 (14:11→20:16)
[2018-03-11 16:00] VITALS: BP 120/73
--- NOTE | 2018-03-11 17:09 | NUR ---
REFUSED TO BE REPOSITION AND WOUND CARE OFFERED AND ENCOURAGED PATIENT TO BE REPOSITION, BUT PATIENT STILL REFUSED. CLAIMED THAT HE'S BEEN TURNING ON HIS OWN. RE-EDUCATE PATIENT REGARDING IMPORTANCE OF TURNING AND REPOSITIONING AND HOW IT PREVENTS PROGRESSION OR WORSENING OF HIS PRESSURE ULCER. BUT PATIENT REMAINS TO REFUSED. ALSO REFUSED WOUND CARE, EXPLAINED RISK AND BENEFIT BUT STILL REFUSED. STATED "NO WAY, IM GOOD RIGHT NOW". OFFERED IF WOUND CARE CAN BE DONE TONIGHT, PATIENT SAID YES.
--- NOTE | 2018-03-11 18:49 | NUR ---
RN CLOSING NOTES PATIENT IN STABLE CONDITION. ALL NEEDS ATTENDED AND PROVIDED. ALL DUE AND PRN MEDICATIONS GIVEN ORDERED. KEPT PATIENT SAFE AND COMFORTABLE. BED IN LOW/LOCKED POSITION, SIDERSAILS UPX2, SEMIFOWLERS, CALL LIGHT IN REACH. WILL ENDORSE TO NIGHT RN FOR TERESA.
--- NOTE | 2018-03-11 20:28 | NUR ---
recieved alert and orientated x3. spks of going home tomorrow. bhumi nephrost tube clear yellow drainage. no c/o smiling
[2018-03-11 21:12] VITALS: BP 102/62
[2018-03-11] MEDS: TAMSULOSIN 0.4 MG CAP.SR.24H PO SCH (21:54)
[2018-03-12] MEDS: HYDROCODONE/APAP 5/325MG 1 EACH TABLET PO PRN ×4 (02:39→21:02)
[2018-03-12] MEDS: GUAIFENESIN LA 600 MG TABLET.SA PO PRN ×3 (02:39→21:02)
[2018-03-12] MEDS: VANCOMYCIN 0.75 GM in IV D5W 250 ML IV SCH ×3 (03:46→21:06)
[2018-03-12 05:35] LABS: CALCIUM, SERUM 7.3 mg/dL (8.5-10.1); CREATININE 0.6 mg/dL (0.6-1.3)
[2018-03-12 05:44] LABS: POTASSIUM 2.7 mmol/L (3.5-5.1)
[2018-03-12 06:02] LABS: HEMATOCRIT 26 % (39-51); HEMOGLOBIN 8.3 g/dL (13.5-17.5); LYMPHOCYTES # (AUTO) 0.5 /CMM (0.8-4.8); LYMPHOCYTES % (AUTO) 3.7 % (20.0-44.0); MEAN CORPUSCULAR HGB CONC 32 g/dl (31.0-36.0); MEAN CORPUSCULAR VOLUME 82 fL (80-96); MONOCYTES # (AUTO) 0.6 /CMM (0.1-1.30); MONOCYTES % (AUTO) 4.1 % (2.0-12.0); NEUTROPHILS # (AUTO) 12.3 /CMM (1.8-8.9); NEUTROPHILS % (AUTO) 90.2 % (43.0-81.0); PLATELET COUNT (AUTO) 495 /CMM (150-450); RDW COEFFICIENT OF VARIATION 15.2 (11.5-15.0); RED BLOOD CELL COUNT(AUTO) 3.18 MIL/uL (4.5-6.0); WHITE BLOOD COUNT (AUTO) 13.6 K/uL (4.3-11.0)
--- NOTE | 2018-03-12 06:45 | NUR ---
K+ LEVEL THIS AM 2.7 MD HAYNES CALLED MESSAGE LEFT WITH THE EXCHANGE WAITING FOR HIS CALL RETURN WILL CALL AGAIN
--- NOTE | 2018-03-12 07:20 | NUR ---
RN OPENING NOTES RECEIVED PATIENT IN BED RESTING, IN SEMIFOWLERS POSITION WITH SIDE RAILS UP X2, A/O X3, ABLE TO MAKE NEEDS KNOWN. ON 2LPM VIA NC, SATTING 99%. NO ACUTE DISTRESS, NO SOB. DENIED PAIN OR DISCOMFORT AT THE MOMENT. PATIENT HAS A CONDOM CATH AND NEPHROSTOMY ON BOTH THE LEFT AND RIGHT SIDE THAT ARE CURRENTLY DRAINING URINE. IV IS PATENT AND INTACT, SAFETY PRECAUTIONS IN PLACE. BED IN LOW/LOCKED POSITION, CALL LIGHT WITHIN REACH, WILL CONTINUE TO MONITOR ACCORDINGLY
[2018-03-12 08:00] VITALS: BP 127/75
[2018-03-12] MEDS: LACTOBACILLUS RHAMNOSUS GG 1 EACH CAP.SPRINK PO SCH ×2 (08:51→17:41)
[2018-03-12] MEDS: FERROUS SULFATE (325 MG) 325 MG/TAB TABLET PO SCH ×2 (08:51→17:41)
[2018-03-12] MEDS: VENLAFAXINE XR 75 MG CAP.SR.24H PO SCH (09:00)
[2018-03-12] MEDS ORDERED: POTASSIUM CL. PREMIX PERIPHER. 50 ML IV SCH (09:00)
[2018-03-12] MEDS: VITAMINS A AND D 56.7 GM TUBE TP SCH (09:01)
[2018-03-12] MEDS: MEROPENEM 500 MG in IV NS 0.9% 50 ML IV SCH ×2 (10:40→22:31)
[2018-03-12] MEDS: IV NS 0.9% 1,000 ML IV PRN (10:41)
[2018-03-12] MEDS ORDERED: LACT1CAP72 PO (10:50)
[2018-03-12] MEDS ORDERED: FERR325T28 PO (10:50)
[2018-03-12] MEDS ORDERED: VENL75CA56 PO (10:50)
[2018-03-12] MEDS ORDERED: LEVO750T21 PO (10:52)
[2018-03-12] MEDS: Potassium Chloride 10 MEQ, LIDOCAINE HCL/PF 1% 1 ML in IV NS 0.9% 50 ML IV SCH ×6 (11:25→17:58)
[2018-03-12 16:00] VITALS: BP 145/71
--- NOTE | 2018-03-12 18:50 | NUR ---
PATIENT IN STABLE CONDITION. ALL NEEDS ATTENDED AND PROVIDED. ALL DUE MEDICATIONS GIVEN ORDERED. KEPT PATIENT SAFE AND COMFORTABLE. WAITING FOR AMBULANCE FOR DISCHARGE. ALL SKIN PHOTOS TAKEN. WOUND CARE RENDERED. DRESSING CHANGED ON BILATERAL NEPHROSTOMY TUBE, DRESIING C/D/I. BED IN LOW/LOCKED POSITION, HOB ELEVATED, SIDERAILS UP, CALL LIGHT IN REACH WILL ENDORSED TO NIGHT RN FOR TERESA.
--- NOTE | 2018-03-12 19:30 | NUR ---
AMBULANCE CREW REFUSED TO TAKE THE PATIENT DUE TO SAFETY CONCERNS, PATIENT LIVES BY HIMSELF AT AN APARTMENT, PATIENT IS NON AMBULATORY. NEEDLE BOARD REPAIRER NOTIFIED. CASE MANAGEMENT ALSO NOTIFIED. PER CM, PATIENT CAN STAY ONE MORE NIGHT.
--- NOTE | 2018-03-12 19:40 | NUR ---
MS RN OPENING NOTES: RECEIVED PT ON 2LPM VIA NC AND IS TOLERATING WELL. PT TO STAY ANOTHER DAY. TELEGRAPHIC SERVICE DISPATCHER AWARE. CHARGE NURSES AWARE. NO IV NOTED AT THIS TIME. WILL HAVE TO START AN IV SOON. PT HAS BILATERAL NEPHROSTOMY TUBES WITH FLUID DRAINING OUT. CALL LIGHT WITHIN PTS' REACH. BED KEPT IN LOW, LOCKED POSITION, AND SIDE RAILS X 2UP. WILL CONTINUE TO MONITOR PT.
--- NOTE | 2018-03-12 19:50 | NUR ---
MS RN NOTES: PT VERY UPSET THAT HE IS NOT GOING HOME [facility] DID NOT WANT TO PICK HIM UP SINCE HE LIVES HOME ALONE. CHARGE NURSE AWARE. Addendum: 03/12/18 at 3 by NCI WALKER RN PT MARGARETTE.
[2018-03-12 20:00] VITALS: BP_SYST 110; BP_SYST 114; BP_DIAS 61; BP_DIAS 65
--- NOTE | 2018-03-12 20:07 | NUR ---
MS RN NOTES: PT ATTEMPTING TO GET OUT OF BED. EXPLAINED TO PT THE RISKS BUT PT IS VERY UPSET THAT [facility] REFUSED TO TAKE HIM HOME. "I HAVE HAD MS FOR 25 YEARS. I HAVE A MOTORIZED SCOOTER AT HOME. I'VE BEEN LIVING LIKE THIS FOR YEARS." PT STILL WANTS TO PROVE THAT HE CAN FUNCTION ALONE. PT SITTING ON EDGE OF BED AND TOOK OF NASAL CANNULA. PT WANTS ANOTHER TRANSPORT TO BE CALLED TO TAKE HIM HOME.
--- NOTE | 2018-03-12 20:14 | NUR ---
MS RN NOTES: CHARGE NURSE AT BEDSIDE. PT WANTS TO SIGN AMA.
--- NOTE | 2018-03-12 20:14 | NUR ---
MS RN NOTES: PT REFUSING CARE.
--- NOTE | 2018-03-12 20:47 | NUR ---
MS RN NOTES: SPOKE WITH DR. HAYNES. EXPLAINED TO HER THAT [facility] REFUSED TO TAKE HIM AND ASSOCIATE PROFESSOR OF LIBRARY SCIENCE ARE AWARE SINCE PT LIVES HOME ALONE AND CANNOT AMBULATE. PER DR. HAYNES, OK TO GIVE IV ABX SCHEDULED WHILE IN THE HOSPITAL. ALSO, GOT ORDER FOR MUCINEX 600MG PO Q6HR PRN AND ALBUTEROL 2.5MG NEB Q4HR PRN.
[2018-03-12] MEDS ORDERED: GUAIFENESIN LA 600 MG TABLET.SA PO PRN (21:00)
[2018-03-12] MEDS ORDERED: ALBUTEROL FS 2.5 MG/0.5 ML VIAL.NEB NEB PRN ×2 (21:00)
--- NOTE | 2018-03-12 21:00 | NUR ---
MS RN NOTES: WAS ABLE TO CALM DOWN PATIENT. WAS OK TO START IV ON L FOREARM #22G.
[2018-03-12] MEDS: TAMSULOSIN 0.4 MG CAP.SR.24H PO SCH (21:02)
[2018-03-13] MEDS: GUAIFENESIN LA 600 MG TABLET.SA PO PRN ×2 (03:15→09:16)
[2018-03-13] MEDS: VANCOMYCIN 0.75 GM in IV D5W 250 ML IV SCH (04:41)
[2018-03-13] MEDS: HYDROCODONE/APAP 5/325MG 1 EACH TABLET PO PRN (06:11)
[2018-03-13 07:04] LABS: CALCIUM, SERUM 7.4 mg/dL (8.5-10.1); CREATININE 0.5 mg/dL (0.6-1.3)
--- NOTE | 2018-03-13 07:26 | NUR ---
MS RN CLOSING NOTES: ALL NEEDS WERE ATTENDED AND ANTICIPATED FOR. PT ON 2LPM VIA NC. PT IS ON IV FLUIDS AND IS BEING INFUSED WITH IV NS AT 125ML/HR. PT ANTICIPATING TO GO HOME. PT HAS BILATERAL NEPHROSTOMY TUBES WITH 1225ML OUTPUT ON THE RIGHT AND 900 ON THE LEFT. CALL LIGHT WITHIN PT'S REACH. BED KEPT IN LOW, LOCKED POSITION, AND SIDE RAILS X 2UP. ENDORSED TO AM NURSE FOR TERESA.
--- NOTE | 2018-03-13 07:30 | NUR ---
MS RN OPENING NOTE RECEIVED PT IN BED, ALERT AND ORIENTED X3, DENIES N/V, CHEST PAIN, SOB AT THIS TIME. BREATHING IS EVEN AND UNLABORED ON 2 L NC. L ARM #22G IV IS INFUSING NS @ 125ML/HR WITHOUT REDNESS OR SWELLING. BILATERAL NEPHROSTOMY TUBES NOTED TO BE DRAINING CLEAR, YELLOW URINE. BILATERAL SCDS IN PLACE. PT IS PENDING D/C HOME TODAY AND VERBALIZED DESIRE TO GO HOME " SOON I CAN". BED IS LOCKED AND IN LOWEST POSITION, SIDE RAILS UP X3, BED ALARM IS ON, CALL LIGHT IS WITHIN REACH.
[2018-03-13 07:46] LABS: POTASSIUM 2.6 mmol/L (3.5-5.1)
[2018-03-13 08:00] VITALS: BP 114/69
--- NOTE | 2018-03-13 08:00 | NUR ---
MS RN CRITICAL LAB RESULT SPOKE WITH KAMRAN FROM LAB AND INFORMED OF POTASSIUM LEVEL OF 2.6. PT CURRENTLY STABLE, VS WNL, NO ACUTE DISTRESS AT THIS TIME. CONTACTED JASON VÁZQUEZ NP AND RECEIVED ORDERS FOR 60 MEQ POTASSIUM PO X 1.
[2018-03-13] MEDS: VITAMINS A AND D 56.7 GM TUBE TP SCH (09:00)
[2018-03-13] MEDS: VENLAFAXINE XR 75 MG CAP.SR.24H PO SCH (09:00)
[2018-03-13] MEDS ORDERED: POTASSIUM CHLORIDE 20 MEQ TAB.PRT.SR PO ONE (09:00)
[2018-03-13] MEDS: FERROUS SULFATE (325 MG) 325 MG/TAB TABLET PO SCH (09:16)
[2018-03-13] MEDS: LACTOBACILLUS RHAMNOSUS GG 1 EACH CAP.SPRINK PO SCH (09:16)
[2018-03-13] MEDS: IV NS 0.9% 1,000 ML IV PRN (09:17)
[2018-03-13] MEDS ORDERED: POTASSIUM CHLORIDE 20 MEQ POWDER PACKET PO ONE (09:30)
[2018-03-13] MEDS: MEROPENEM 500 MG in IV NS 0.9% 50 ML IV SCH (10:28)
--- NOTE | 2018-03-13 13:15 | NUR ---
MS RN PT DISCHARGED PT DISCHARGED HOME VIA PRIVATE CAR, ACCOMPANIED BY FRIEND ROJAS. PT IS MEDICALLY STABLE, DENIES N/V, CHEST PAIN, SOB AT THIS TIME. BREATHING IS EVEN AND UNLABORED ON ROOM AIR, NO SIGNS OF ACUTE DISTRESS. PT DECLINED TO BE TRANSFERRED TO INTERMEDIATE FACILITY. DISCHARGE PAPERWORK AND EDUCATION PROVIDED PER HOSPITAL PROTOCOL, PT INFORMED TO CALL 911 OR GO TO THE NEAREST ER FOR CHEST PAIN, SOB, OR AND ELEVATED TEMPERATURE THAT DOES NOT RESOLVE WITH TYLENOL. ADEQUATE TIME FOR QUESTIONS ALLOWED. PT INFORMED TO FOLLOW UP WITH PRIMARY CARE PROVIDER IN 1-2 WEEKS AND TO ALSO FOLLOW UP WITH DR. ENRIQUEZ (UROLOGIST) WITHIN 1 WEEK. ALL BELONGINGS ACCOUNTED FOR AND BELONGINGS LIST SIGNED AND PLACED IN CHART. L ARM #22G IV REMOVED WITH CATHETER IN TACT.
== END 2018-03-13 13:15 | disposition home health service (06) | DRG 853 ==
LOC: ER 19:53 → TELE 21:58 → MED 03-06 11:50
PROVIDERS: ADMIT Internal Medicine; ATTEND Internal Medicine
PROC: 30233K1 Transfusion of Nonautologous Frozen Plasma into Peripheral Vein, Percutaneous Approach (ICD-10-PCS; 2018-03-06)
PROC: 0T133JD Bypass Right Kidney Pelvis to Cutaneous with Synthetic Substitute, Percutaneous Approach (ICD-10-PCS; principal; 2018-03-07)
PROC: 0T143JD Bypass Left Kidney Pelvis to Cutaneous with Synthetic Substitute, Percutaneous Approach (ICD-10-PCS; 2018-03-07)
PROC: 0KBP0ZZ Excision of Left Hip Muscle, Open Approach (ICD-10-PCS; 2018-03-08)
PROC: 0KBN0ZZ Excision of Right Hip Muscle, Open Approach (ICD-10-PCS; 2018-03-08)
DX: A41.9 Sepsis, unspecified organism (principal); L89.154 Pressure ulcer of sacral region, stage 4; L89.324 Pressure ulcer of left buttock, stage 4; L89.314 Pressure ulcer of right buttock, stage 4; J15.6 Pneumonia due to other Gram-negative bacteria; E43 Unspecified severe protein-calorie malnutrition; N17.0 Acute kidney failure with tubular necrosis; J85.1 Abscess of lung with pneumonia; J85.0 Gangrene and necrosis of lung; E87.1 Hypo-osmolality and hyponatremia; J44.0 Chronic obstructive pulmonary disease with (acute) lower respiratory infection; R64 Cachexia; N39.0 Urinary tract infection, site not specified; N13.6 Pyonephrosis; K92.2 Gastrointestinal hemorrhage, unspecified; D68.9 Coagulation defect, unspecified; Z68.1 Body mass index [BMI] 19.9 or less, adult; F23 Brief psychotic disorder; I25.10 Atherosclerotic heart disease of native coronary artery without angina pectoris; E66.01 Morbid (severe) obesity due to excess calories; E87.6 Hypokalemia; Z87.891 Personal history of nicotine dependence; Z87.442 Personal history of urinary calculi; R13.10 Dysphagia, unspecified; G35 Multiple sclerosis; B96.89 Other specified bacterial agents as the cause of diseases classified elsewhere; D64.9 Anemia, unspecified; E88.09 Other disorders of plasma-protein metabolism, not elsewhere classified; E86.0 Dehydration; L89.890 Pressure ulcer of other site, unstageable; L89.101 Pressure ulcer of unspecified part of back, stage 1; S80.212A Abrasion, left knee, initial encounter; S80.211A Abrasion, right knee, initial encounter; X58.XXXA Exposure to other specified factors, initial encounter; Y93.9 Activity, unspecified; Y92.009 Unspecified place in unspecified non-institutional (private) residence as the place of occurrence of the external cause; F25.0 Schizoaffective disorder, bipolar type; R31.9 Hematuria, unspecified; M62.50 Muscle wasting and atrophy, not elsewhere classified, unspecified site; F12.90 Cannabis use, unspecified, uncomplicated; D47.3 Essential (hemorrhagic) thrombocythemia; E86.1 Hypovolemia; Z99.3 Dependence on wheelchair; N32.89 Other specified disorders of bladder; E61.1 Iron deficiency
CPT/HCPCS: 36415; 71045-TC; 71250-TC; 74178; 75989; 75989-TC; 80048-TC; 80053-TC; 80061-TC; 80076-TC; 80202-TC; 81000-TC; 82728-TC; 82784; 83540-TC; 83605-TC; 83735-TC; 84100-TC; 84134-TC; 84155; 84165; 84443-TC; 84484-TC; 84550-TC; 85025-TC; 85027-TC; 85610-TC; 85730-TC; 86334; 86850-TC; 87040-TC; 87081-TC; 87086-TC; 92611-TC; A4215; A4216; A4349; A4606; A6253; A6402; A6403; J0692; J2185; J2250; J2310; J2405; J3010; J3370; J3480; J3490; J7030; J7050; J7060; P9017-BL; Q9967; Z7610